=== PATIENT | female | born 2000 | race Caucasian/White ===

== ENCOUNTER 2023-02-24 10:25 | Outpatient (OUT) | payer OTHER, SELFPAY ==
--- NOTE | 2023-02-24 10:24 | US_ITS ---
The [address] [address] Patient Name: JUAN CARLOS TURENR MRN: [id number] date: 2000 Sex: F Assigned Patient Location: US Current Patient Location: US Accession/Order Number: [id number] Exam Date: 02/24/2023 10:25 Report Date: 02/24/2023 19:07 At the request of: EVERARDO OLIVEIRA Procedure: US OB transvaginal EXAMINATION: US OB transvaginal HISTORY: MISSED PERIOD COMPARISON: No relevant comparison available. FINDINGS: GESTATIONAL SAC: Present and normal appearing x2. YOLK SAC: Present and normal appearing x2. POLE: Present and normal appearing x2. CARDIAC: Present x2. UTERUS: Normal size and appearance. OVARIES: Right: Corpus lutein cyst. Left: Normal. CERVIX: 4.0 cm in length and closed. CUL-DE-SAC: Normal. OTHER: None. AGE BY LMP: 9 weeks 5 days PETTY BY LMP: 09/24/2023 AGE BY US CRL: Baby A: 9 weeks 5 days Baby B: 10 weeks 2 days PETTY BY US CRL: Baby A: 09/24/2023 Baby B: 09/20/2023 US/US OB transvaginal IMPRESSION: Live twin intrauterine . Electronically authenticated by: MARIANA MISTRY Date: 02/24/2023 19:07
== END 2023-02-24 10:26 | disposition home or self-care (01) ==
LOC: US 10:25
PROVIDERS: Visit Provider Obstetrics & Gynecology
DX: O30.001 Twin pregnancy, unspecified number of placenta and unspecified number of amniotic sacs, first trimester (principal); Z3A.09 9 weeks gestation of pregnancy; N92.6 Irregular menstruation, unspecified
CPT/HCPCS: 76817

== ENCOUNTER 2023-03-03 11:58 | Outpatient (OUT) | payer OTHER, SELFPAY ==
[2023-03-03 12:38] LABS: BOX Test Sent Out Y
== END 2023-03-03 11:59 | disposition home or self-care (01) ==
LOC: LAB 12:02
PROVIDERS: Visit Provider Obstetrics & Gynecology
DX: Z34.81 Encounter for supervision of other normal pregnancy, first trimester (principal); Z31.430 Encounter of female for testing for genetic disease carrier status for procreative management
CPT/HCPCS: 36415

== ENCOUNTER 2023-03-10 12:57 | Outpatient (OUT) | payer OTHER, SELFPAY ==
[2023-03-10 13:29] LABS: Basophils Percent Auto 0.2 % (0.2-2.0); Eosinophils Absolute Auto 0.1 10^3/uL (0.0-0.7); Hematocrit 37.9 % (36.0-48.0); Immature Granulocytes Abs Auto 0.03 10^3/uL (0.00-0.03); Immature Granulocytes Pct Auto 0.3 % (0.0-0.5); Lymphocytes Absolute Auto 1.6 10^3/uL (1.2-3.8); Lymphocytes Percent Auto 15.6 % (20.5-60.0); Mean Corpuscular HGB Conc 34.3 g/dL (29.9-35.2); Mean Corpuscular Hemoglobin 30.7 pg (26.7-34.0); Mean Corpuscular Volume 89.4 fL (81.0-99.0); Mean Platelet Volume 10.4 fL (9.5-13.5); Monocytes Absolute Auto 0.5 10^3/uL (0.3-0.8); Monocytes Percent Auto 4.9 % (1.7-12.0); Neutrophils Absolute Auto 7.9 10^3/uL (1.4-6.5); Platelet Count 281 10^3/uL (150-450); Red Blood Count 4.24 10^6/uL (4.20-5.40); White Blood Count 10.1 10^3/uL (4.0-11.0)
[2023-03-10 13:41] LABS: Estimated Average Glucose 94 mg/dL; Glycohemoglobin A1C 4.9 % (4.5-6.2)
[2023-03-10 14:15] LABS: Thyroid Stimulating Hormone 1.263 uIU/mL (0.358-3.740)
[2023-03-11 06:12] LABS: Rubella Antibodies, IgG <0.90 index (Immune >0.99)
[2023-03-11 07:12] LABS: HBsAg Screen Negative (Negative); HCV Ab Non Reactive (Non Reactive); HIV Ab/p24 Ag Screen Non Reactive (Non Reactive)
[2023-03-11 10:13] LABS: Rapid Plasma Reagin, Quant Non Reactive (NonRea<1:1)
== END 2023-03-10 12:58 | disposition home or self-care (01) ==
LOC: LAB 13:00
PROVIDERS: Visit Provider Obstetrics & Gynecology
DX: N91.2 Amenorrhea, unspecified (principal)
CPT/HCPCS: 36415; 83036; 84443; 85025; 86592; 86706; 86762; 86803; 86850; 86900; 86901; 87086; 87389

== ENCOUNTER 2023-03-29 20:23 | Outpatient (REF) | payer OTHER, SELFPAY ==
[2023-04-04 13:08] LABS: Age Gdln ACOG Testing Note (.); IGP, rfx Aptima HPV ASCU Note (.)
== END 2023-03-29 20:24 | disposition home or self-care (01) ==
LOC: LAB 20:23
PROVIDERS: Visit Provider Obstetrics & Gynecology
DX: Z01.419 Encounter for gynecological examination (general) (routine) without abnormal findings (principal)
CPT/HCPCS: G0145

== ENCOUNTER 2023-04-07 13:30 | Outpatient (OUT) | payer OTHER, SELFPAY ==
[2023-04-09 00:08] LABS: AFP Value 49.4 ng/mL (.); Gest. Age on Collection Date 15.7 weeks (.); Insulin Dep Diabetes No (.); Maternal Age At EDD 24.2 yr (.); OSBR Risk 1 IN 8068 (.); Results Report (.)
== END 2023-04-07 13:31 | disposition home or self-care (01) ==
LOC: LAB 13:31
PROVIDERS: Visit Provider Obstetrics & Gynecology
DX: Z34.92 Encounter for supervision of normal pregnancy, unspecified, second trimester (principal)
CPT/HCPCS: 36415; 82105

== ENCOUNTER 2023-08-19 08:05 | Outpatient (RCR) | payer OTHER, SELFPAY ==
[2023-08-19] MEDS: BETAMETHASONE ACE/BETAMETHASONE SOD PHOS 30 MG/5 ML 12 MG IM (15:08)
== END 2023-08-19 15:30 | disposition home or self-care (01) ==
LOC: INF 08:05
PROVIDERS: Visit Provider Obstetrics & Gynecology
DX: O36.8990 Maternal care for other specified fetal problems, unspecified trimester, not applicable or unspecified (principal); Z3A.00 Weeks of gestation of pregnancy not specified
CPT/HCPCS: 96372; J0702

== ENCOUNTER 2023-08-20 14:55 | Outpatient (OUT) | payer OTHER, SELFPAY ==
--- OUTSIDE RECORDS SUMMARY | 2023-08-20 15:06 | XMS_ITS | CCD ---
Author Name Unknown Address [address] [place] [address] Organization [facility] Care Team Providers Care Internal Specialist Name Role Phone HOUSE, SUREKHA Unavailable Unavailable HOUSE, SUREKHA Unavailable Unavailable HOUSE, SUREKHA Unavailable Unavailable HOUSE, SUREKHA Unavailable Unavailable SHINE AUGUSTIN Unavailable Unavailable HOUSE, SUREKHA Unavailable Unavailable HOUSE, SUREKHA Unavailable Unavailable Isiah LAI, [facility] Primary Care Provider Isiah LAI, [facility] Primary Care Provider ZARINA MAYA Referring Unavailable [facility] Primary Care Unavailable [facility] Primary Care Unavailable ANAIS MONTIEL Attending Unavailable IAIN SHAH Attending Unavailable [facility] Primary Care Unavailable MORA SKINNER Referring Unavailable [facility] Primary Care Unavailable MARQUEZ DANIELLE Attending Unavailable EVERARDO OLIVEIRA Attending Unavailable MARQUEZ DANIELLE Attending Unavailable Medications Current Medications Medication Drug Class(es) Dates Sig (Normalized) Sig (Original) acetaZOLAMIDE 250 mg oral tablet (2 sources) Carbonic Anhydrase Inhibitor take 1 tablet by mouth twice daily acetaZOLAMIDE (DIAMOX) 250 MG tablet Take 250 mg by mouth 2 times daily 0 Active fluticasone propionate 0.05 mg/actuat metered dose nasal spray (4 sources) Corticosteroid Start: 10-11-2021 take 2 spray(s) nasal route once daily fluticasone (FLONASE) 50 MCG/ACT nasal spray 2 sprays by Each Nostril route daily 48 g 1 10/11/2021 Active Completed/Discontinued Medications Medication Drug Class(es) Dates Sig (Normalized) Sig (Original) dexamethasone phosphate 10 mg/ml injectable solution (1 source) Corticosteroid Start: 11-04-2021 End: 11-04-2021 dexamethasone (DECADRON) injection 10 mg Start: 11-04-2021 End: 11-04-2021 dexamethasone (DECADRON) inj ection 10 mg iopamidol (ISOVUE-370) 76 % injection 75 mL (1 source) Start: 11-08-2021 End: 11-08-2021 iopamidol (ISOVUE-370) 76 % injection 75 mL 1 ml ketorolac tromethamine 30 mg/ml cartridge (1 source) Nonsteroidal Anti-inflammatory Drug, Cyclooxygenase Inhibitor Start: 11-04-2021 End: 11-04-2021 ketorolac (TORADOL) injection 30 mg Start: 11-04-2021 End: 11-04-2021 ketorolac (TORADOL) injectio n 30 mg Problems Active Problems Problem Classification Problem Date Documented Da te Episodic/Chronic Fluid and electrolyte disorders (1 source) Dehydration; Translations: [Dehydration] Episodic Genitourinary symptoms and ill-defined conditions (1 source) Dysuria; Translations: [Painful micturition, unspecified] Episodic Headache, including migraine (2 sources) Headache; Translations: [Headache] Onset: 10-20-2017 Episodic Other acquired deformities (1 source) Scoliosis, unspecified; Translations: [SCOLIOSIS UNSPECIFIED] Onset: 10-20-2017 Chronic Other ear and sense organ disorders (1 source) Otalgia, right ear; Translations: [Otalgia, unspecified] Episodic Other ear and sense organ disorders (1 source) Tinnitus of vascular origin; Translations: [Pulsatile tinnitus, right ear] Episodic Past or Other Problems Problem Classification Problem Date Documented Da te Episodic/Chronic Malaise and fatigue (1 source) Other fatigue; Translations: [OTHER FATIGUE] Onset: 10-20-2017 Episodic Other lower respiratory disease (5 sources) Shortness of breath; Translations: [Dyspnea, unspecified] Onset: 10-18-2017 Episodic Results Test Name Value Interpretation Reference Range Facility Basic Metabolic Panelon 04-14 Anion gap [Moles/Vol] 12 mmol/L 9 - 17 mmol/L [facility] Calcium [Mass/Vol] 9.3 mg/dL 8.6 - 10. 4 mg/dL [facility] Chloride [Moles/Vol] 109 mmol/L High 98 - 10 7 mmol/L [facility] CO2 [Moles/Vol] 16 mmol/L Low 20 - 31 mmol/L [facility] Creatinine [Mass/Vol] 0.76 mg/dL 0.5 - 0.9 mg/dL [facility] GFR >60 60 - PI NF mL/min [facility] GFR Non- >60 60 - PINF mL/min [facility] GFR/1.73 sq M.predicted MDRD (S/P/Bld) [Vol rate/Area] [facility] Comment on above: Average GFR for 20-2 9 years old: 116 mL/min/1.73sq m Chronic Kidney Disease: <60 mL/min/1.73sq m Kidney failure: <15 mL/min/1.73sq m eGFR calculated using average adult body mass. Additional eGFR calculator available at: http://www.Vocal[employer]/giftee_crcl_2011.htm Glucose [Mass/Vol] 94 mg/dL 70 - 99 mg/dL [facility] Interpretation and review of laboratory results Abnormal [facility] Potassium [Moles/Vol] 4.0 mmol/L 3.7 - 5.3 mmol/L [facility] Sodium [Moles/Vol] 137 mmol/L 135 - 144 mmol/L [facility] Urea nitrogen (BldV) [Mass/Vol] 9 mg/dL 6 - 20 mg/dL [facility] Urea nitrogen/Creatinine (Bld) [Mass ratio] 12 9 - 20 [facility] Basic Metabolic Profon 04-23 (cont.) Normal [facility] Comment on above: Result Comment: Aver age GFR for 20-29 years old: 116 mL/min/1.73sq m Chronic Kidney Disease: <60 mL/min/1.73sq m Kidney failure: <15 mL/min/1.73sq m eGFR calculated using average adult body mass. Additional eGFR calculator available at: http://www.Vocalocity/giftee_crcl_2012.htm Performed By: #### B MP, MG #### [facility] [address] [place] [address] Geospatial Specialist: Ap Gutierrez MD Anion gap [Moles/Vol] 12 mmol/L Normal 9-17 [facility] Comment on above: Performed By: #### B MP, MG #### [facility] [address] [place] [address] Geospatial Specialist: Ap Gutierrez MD BUN/CRE Ratio 12 Normal 9-20 [facility] Comment on above: Performed By: #### B MP, MG #### [facility] [address] [place] [address] Geospatial Specialist: Ap Gutierrez MD Calcium [Mass/Vol] 9.3 mg/dL Normal 8.6-10.4 [facility] Comment on above: Performed By: #### B MP, MG #### [facility] [address] [place] [address] Geospatial Specialist: Ap Gutierrez MD Chloride [Moles/Vol] 109 mmol/L High 98-107 [facility] Comment on above: Performed By: #### B MP, MG #### [facility] [address] [place] [address], [place] [address] Geospatial Specialist: Ap Gutierrez MD CO2 [Moles/Vol] 16 mmol/L Low 20-31 [facility] Comment on above: Performed By: #### B MP, MG #### [facility] [address] [place] [address], [place] [address] Geospatial Specialist: Ap Gutierrez MD Creatinine [Mass/Vol] 0.76 mg/dL Normal 0.50-0.90 [facility] Comment on above: Performed By: #### B MP, MG #### [facility] [address] [place] [address] Geospatial Specialist: Ap Gutierrez MD GFR, Amer >60 Normal >60 [facility] Comment on above: Performed By: #### B MP, MG #### [facility] [address] [place] [address], [place] [address] Geospatial Specialist: Ap Gutierrez MD GFR,non Amer >60 Normal >60 [facility] Comment on above: Performed By: #### B MP, MG #### [facility] [address] [place] [address], [place] [address] Geospatial Specialist: Ap Gutierrez MD Glucose [Mass/Vol] 94 mg/dL Normal 70-99 [facility] Comment on above: Performed By: #### B MP, MG #### [facility] [address] [place] [address], [place] [address] Geospatial Specialist: Ap Gutierrez MD Potassium [Moles/Vol] 4.0 mmol/L Normal 3.7-5.3 [facility] Comment on above: Performed By: #### B MP, MG #### [facility] [address] [place] [address], [place] [address] Geospatial Specialist: Ap Gutierrez MD Sodium [Moles/Vol] 137 mmol/L Normal 135-144 [facility] Comment on above: Performed By: #### B MP, MG #### [facility] [address] [place] [address], [place] [address] Geospatial Specialist: Ap Gutierrez MD Urea nitrogen [Mass/Vol] 9 mg/dL Normal 6-20 [facility] Comment on above: Performed By: #### B MP, MG #### [facility] [address] [place] [address] Geospatial Specialist: Ap Gutierrez MD Magnesiumon 04-23-2022 Magnesium [Mass/Vol] 2.2 mg/dL Normal 1.6-2.6 [facility] Comment on above: Performed By: #### B MP, MG #### [facility] [address] [place] [id number] Geospatial Specialist: Ap Gutierrez MD Magnesium [Mass/Vol] 2.2 mg/dL 1.6 - 2 .6 mg/dL [facility] No Panel Informationon 04-23 [facility] Microscopic Urinalysison Bacteria, UA 4+ Abnormal None [facility] Epithelial Cells UA 0 TO 4 [facility] Interpretation and review of laboratory results Abnormal [facility] Mucus, UA 2+ Abnormal None [facility] RBC, UA 0 TO 4 [facility] WBC, UA 0 TO 4 [facility] UA w/Reflex Cultureon 2021 Bilirubin, SemiQt,Ur Negative Normal [facility] Comment on above: Performed By: #### U AX, UMICAO #### [facility] [address] [place] [address] Geospatial Specialist: Ap Gutierrez MD Blood, Urine Negative Normal [facility] Comment on above: Performed By: #### U AX, UMICAO #### [facility] [address] [place] [address] Geospatial Specialist: Ap Gutierrez MD Glucose Ql (U) Negative Normal [facility] Comment on above: Performed By: #### U AX, UMICAO #### [facility] [address] [place] [address] Geospatial Specialist: Ap Gutierrez MD Ketones Ql (U) 2+ Abnormal [facility] Comment on above: Performed By: #### U AX, UMICAO #### [facility] [address] [place] [address] Geospatial Specialist: Ap Gutierrez MD Leukocyte esterase Test strip Ql (U) Negative Normal [facility] Comment on above: Performed By: #### U AX, UMICAO #### [facility] [address] [place] [address] Geospatial Specialist: Ap Gutierrez MD Nitrite,Ur Negative Normal NEG [facility] Comment on above: Performed By: #### U AX UMICAO #### [facility] [address] [place] [address] Geospatial Specialist: Ap Gutierrez MD PH,Ur 6.0 Normal 5.0-6.0 [facility] Comment on above: Performed By: #### U AXREGLAICAO #### [facility] [address] [place] [address] Geospatial Specialist: Ap Gutierrez MD Protein Ql (U) Negative Normal NEG [facility] Comment on above: Performed By: #### U AX UMICAO #### [facility] [address] [place] [address] Geospatial Specialist: Ap Gutierrez MD Spec. [place],Ur 1.025 Normal 1.010-1.025 [facility] Comment on above: Performed By: #### U AXTERIO #### [facility] [address] [place] [address] Geospatial Specialist: Ap Gutierrez MD Urobilinogen,Ur Normal Normal NORM [facility] Comment on above: Performed By: #### U AXTERIO #### [facility] [address] [place] [address] Geospatial Specialist: Ap Gutierrez MD Urinalysis with Reflex to Cu ltureon 03-24-2022 Bilirubin Urine Negative NEGATIVE [facility] Glucose, Ur Negative NEGATIVE [facility] Interpretation and review of laboratory results Abnormal [facility] Ketones Ql (U) 2+ Abnormal NEGATIVE [facility] Leukocyte esterase Test strip Ql (U) Negative NEGATIVE [facility] Nitrite, Urine Negative NEGATIVE [facility] pH, UA 6.0 5 - 6 [facility] Protein, UA Negative NEGATIVE [facility] Specific [place], UA 1.025 1.01 - 1.025 [facility] Urine Hgb Negative NEGATIVE [facility] Urobilinogen, Urine Normal Normal [facility] Urinalysis,Microon 2 Bacteria 4+ Abnormal NONE [facility] Comment on above: Performed By: #### U AXISIDRA #### [facility] [address] [place] [address] Geospatial Specialist: Ap Gutierrez MD Epithelial cells LM Ql (Urine sed) 0 TO 4 Normal 0-5 [facility] Comment on above: Performed By: #### U AXTERIO #### [facility] [address] [place] [address] Geospatial Specialist: Ap Gutierrez MD Mucus Strands 2+ Abnormal [facility] Comment on above: Performed By: #### U AXTERIO #### [facility] [address] [place] [address] Geospatial Specialist: Ap Gutierrez MD Urine RBC's 0 TO 4 Normal 0-4 [facility] Comment on above: Performed By: #### U AXREGLAICAO #### [facility] [address] [place] [address] Geospatial Specialist: Ap Gutierrez MD Urine WBC's 0 TO 4 Normal 0-4 [facility] Comment on above: Performed By: #### U AXTERIO #### [facility] [address] [place] [address] Geospatial Specialist: Ap Gutierrez MD CT IAC POSTERIOR FOSSA W CON TRASTon 11-08-2021 CT IAC POSTERIOR FOSSA W CONTRAST EXAMINATION: CT OF THE INTERNAL AUDITORY CANAL WITH CONTRAST 11/08/2021 1:57 pm: TECHNIQUE: CT of the internal auditory canal was performed with the administration of intravenous contrast. Multiplanar reformatted images are provided for review. Dose modulation, iterative reconstruction, and/or weight based adjustment of the mA/kV was utilized to reduce the radiation dose to as low as reasonably achievable. COMPARISON: CT brain performed 11/04/2021. HISTORY: ORDERING SYSTEM PROVIDED HISTORY: Pulsatile tinnitus, right ear TECHNOLOGIST PROVIDED HISTORY: STAT Creatinine as needed:->Yes Reason for Exam: c/o pulsating sensation in right ear FINDINGS: RIGHT TEMPORAL BONE: The external auditory canal is clear without evidence of bony erosion. The scutum is intact. The middle ear cavity is clear. The ossicular chain is intact. The mastoid air cells are clear. The inner ear structures appear unremarkable. Normal mineralization of the otic capsule. The internal auditory canal and vestibular aqueduct appear unremarkable. The carotid canal is normal in appearance. The jugular bulb is unremarkable. LEFT TEMPORAL BONE: The external auditory canal is clear without evidence of bony erosion. The scutum is intact. The middle ear cavity is clear. The ossicular chain is intact. The mastoid air cells are clear. The inner ear structures appear unremarkable. Normal mineralization of the otic capsule. The internal auditory canal and vestibular aqueduct appear unremarkable. The carotid canal is normal in appearance. The jugular bulb is unremarkable. BRAIN: The visualized portion of the intracranial contents appear unremarkable. ORBITS: The visualized portion of the orbits demonstrate no acute abnormality. SINUSES: The visualized paranasal sinuses are clear. IMPRESSION: Unremarkable appearance of the temporal bones. Interpreted by: Lico Orosco MD Signed by: Lico Orosco MD 11/08/21 Final result Normal [facility] Unremarkable appearance of the temporal bones. [facility] RIS CONSOLIDATED EXAMINATION: CT OF THE INTERNAL AUDITORY CANAL WITH CONTRAST 11/08/2021 1:57 pm: TECHNIQUE: CT of the internal auditory canal was performed with the administration of intravenous contrast. Multiplanar reformatted images are provided for review. Dose modulation, iterative reconstruction, and/or weight based adjustment of the mA/kV was utilized to reduce the radiation dose to as low as reasonably achievable. COMPARISON: CT brain performed 11/04/2021. HISTORY: ORDERING SYSTEM PROVIDED HISTORY: Pulsatile tinnitus, right ear TECHNOLOGIST PROVIDED HISTORY: STAT Creatinine as needed:->Yes Reason for Exam: c/o pulsating sensation in right ear FINDINGS: RIGHT TEMPORAL BONE: The external auditory canal is clear without evidence of bony erosion. The scutum is intact. The middle ear cavity is clear. The ossicular chain is intact. The mastoid air cells are clear. The inner ear structures appear unremarkable. Normal mineralization of the otic capsule. The internal auditory canal and vestibular aqueduct appear unremarkable. The carotid canal is normal in appearance. The jugular bulb is unremarkable. LEFT TEMPORAL BONE: The external auditory canal is clear without evidence of bony erosion. The scutum is intact. The middle ear cavity is clear. The ossicular chain is intact. The mastoid air cells are clear. The inner ear structures appear unremarkable. Normal mineralization of the otic capsule. The internal auditory canal and vestibular aqueduct appear unremarkable. The carotid canal is normal in appearance. The jugular bulb is unremarkable. BRAIN: The visualized portion of the intracranial contents appear unremarkable. ORBITS: The visualized portion of the orbits demonstrate no acute abnormality. SINUSES: The visualized paranasal sinuses are clear. [facility] RIS CONSOLIDATED Lico Orosco MD - 11/08/2021 EXAMINATION: CT OF THE INTERNAL AUDITORY CANAL WITH CONTRAST 11/08/2021 1:57 pm: TECHNIQUE: CT of the internal auditory canal was performed with the administration of intravenous contrast. Multiplanar reformatted images are provided for review. Dose modulation, iterative reconstruction, and/or weight based adjustment of the mA/kV was utilized to reduce the radiation dose to as low as reasonably achievable. COMPARISON: CT brain performed 11/04/2021. HISTORY: ORDERING SYSTEM PROVIDED HISTORY: Pulsatile tinnitus, right ear TECHNOLOGIST PROVIDED HISTORY: STAT Creatinine as needed:->Yes Reason for Exam: c/o pulsating sensation in right ear FINDINGS: RIGHT TEMPORAL BONE: The external auditory canal is clear without evidence of bony erosion. The scutum is intact. The middle ear cavity is clear. The ossicular chain is intact. The mastoid air cells are clear. The inner ear structures appear unremarkable. Normal mineralization of the otic capsule. The internal auditory canal and vestibular aqueduct appear unremarkable. The carotid canal is normal in appearance. The jugular bulb is unremarkable. LEFT TEMPORAL BONE: The external auditory canal is clear without evidence of bony erosion. The scutum is intact. The middle ear cavity is clear. The ossicular chain is intact. The mastoid air cells are clear. The inner ear structures appear unremarkable. Normal mineralization of the otic capsule. The internal auditory canal and vestibular aqueduct appear unremarkable. The carotid canal is normal in appearance. The jugular bulb is unremarkable. BRAIN: The visualized portion of the intracranial contents appear unremarkable. ORBITS: The visualized portion of the orbits demonstrate no acute abnormality. SINUSES: The visualized paranasal sinuses are clear. IMPRESSION: Unremarkable appearance of the temporal bones. [employer] Phone: Radiology Study observation (narrative) [employer] Phone: CT IAC POSTERIOR FOSSA W CON TRASTOrdered By: Lico Orosco on 11-08-2021 [employer] Phone: CT HEAD WO CONTRASTon 2021 CT HEAD WO CONTRAST EXAMINATION: CT OF THE HEAD WITHOUT CONTRAST 11/04/2021 11:53 am TECHNIQUE: CT of the head was performed without the administration of intravenous contrast. Dose modulation, iterative reconstruction, and/or weight based adjustment of the mA/kV was utilized to reduce the radiation dose to as low as reasonably achievable. COMPARISON: None. HISTORY: ORDERING SYSTEM PROVIDED HISTORY: headache TECHNOLOGIST PROVIDED HISTORY: headache Decision Support Exception - unselect if not a suspected or confirmed emergency medical condition->Emergenc y Medical Condition (MA) Is the patient ?->No Reason for Exam: C/o pressure in right ear with visual changes FINDINGS: BRAIN/VENTRICLES: There is no acute intracranial hemorrhage, mass effect or midline shift. No abnormal extra-axial fluid collection. The romero-white differentiation is maintained without evidence of an acute infarct. There is no evidence of hydrocephalus. ORBITS: The visualized portion of the orbits demonstrate no acute abnormality. SINUSES: The visualized paranasal sinuses and mastoid air cells demonstrate no acute abnormality. SOFT TISSUES/SKULL: No acute abnormality of the visualized skull or soft tissues. IMPRESSION: No acute intracranial abnormality. Interpreted by: Raj Araiza MD Signed by: Raj Araiza MD 11/04/21 Final result Normal [facility] HCG, ,Urineon 11-04 Beta HCG ( test) Ql (U) Negative Normal NEG [facility] Comment on above: Result Comment: Spec imens with hCG levels near the threshold of the test (25 mIU/mL) may give a negative or indeterminate result. In such cases, another test should be performed with a new specimen in 48-72 hours. If early is suspected clinically in this setting, correlation with quantitative serum b-hCG level is suggested. Performed By: #### U HCG #### [facility] [address] [place] [address] Geospatial Specialist: Ap Gutierrez MD , Urineon 2 Beta HCG ( test) Ql (U) Negative NEGATIVE [facility] Comment on above: Specimens with hCG l evels near the threshold of the test (25 mIU/mL) may give a negative or indeterminate result. In such cases, another test should be performed with a new specimen in 48-72 hours. If early is suspected clinically in this setting, correlation with quantitative serum b-hCG level is suggested. [facility] CBC AUTO DIFFon 10-18-2017 Basophils Auto #/vol (Bld) 0.0 103/ul Normal 0.0-0.1 [facility] Comment on above: Performed By: #### C BC ####[facility] [address] [place], [place] [address]Nlsugz Varsha Basophils/100 WBC Auto (Bld) 0.4 % Normal 0.2-2.0 [facility] Comment on above: Performed By: #### C BC ####[facility] [address] [place] [address]Chmegq Varsha Eosinophils 0.1 103/ul Normal 0.0-0.7 [facility] Comment on above: Performed By: #### C BC ####[facility] [address] [place], [place] [id number] Varsha Eosinophils/100 leukocytes 1.7 % Normal 0.9-7.0 [facility] Comment on above: Performed By: #### C BC ####[facility] [address] [place] [address]Xrbyzf Varsha Erythrocyte distribution width Auto Ratio (RBC) 12.2 % Normal 11.0-15.0 [facility] Comment on above: Performed By: #### C BC ####[facility] [address] [place] [address]Jahxcy Varsha Erythrocytes (RBC) 4.20 106/ul Normal 4.20-5.40 [facility] Comment on above: Performed By: #### C BC ####[facility] [address] Varsha Hematocrit (HCT) 38.7 % Normal 36.0-48.0 [facility] Comment on above: Performed By: #### C BC ####[facility] [address] Varsha Hemoglobin mass conc (Bld) 12.8 g/dL Normal 12.0-16.0 [facility] Comment on above: Performed By: #### C BC ####[facility] [address] [place] [address] Varsha IG # 0.01 10e3/ul Normal 0.00-0.03 [facility] Comment on above: Performed By: #### C BC ####[facility] [address] [place] [address] Varsha IG % 0.1 % Normal 0.0-0.5 [facility] Comment on above: Performed By: #### C BC ####[facility] [address] [place] [address] Varsha Lymphocytes 2.2 103/ul Normal 1.2-3.8 [facility] Comment on above: Performed By: #### C BC ####[facility] [address] [place] [address] Varsha Lymphocytes/100 leukocytes 27.6 % Normal 20.5-60.0 [facility] Comment on above: Performed By: #### C BC ####[facility] [address] [place] MANUAL DIFF REQ NO Normal [facility] Comment on above: Performed By: #### C BC ####[facility] [id number] [place] [address] Varsha MCH 30.5 pg Normal 26.7-34.0 [facility] Comment on above: Performed By: #### C BC ####[facility] F[address] [place], [place] [address]maida Maddox MCHC mass conc (RBC) 33.1 g/dL Normal 29.9-35.2 [facility] Comment on above: Performed By: #### C BC ####[facility] [address] [place] [id number] Maddox MCV 92.1 fL Normal 81.0-99.0 [facility] Comment on above: Performed By: #### C BC ####[facility] L[address] [place] [id number] Varsha Monocytes 0.6 103/ul Normal 0.3-0.8 [facility] Comment on above: Performed By: #### C BC ####[facility] [address] [place], [place] [id number] Varsha Monocytes/100 leukocytes 7.3 % Normal 1.7-12.0 [facility] Comment on above: Performed By: #### C BC ####[facility] [address] [place], [place] [id number] Varsha Neutrophils 4.9 103/ul Normal 1.4-6.5 [facility] Comment on above: Performed By: #### C BC ####[facility] [address] [place], [place] [id number] Varsha Neutrophils/100 WBC Auto (Bld) 62.9 % Normal 43.0-75.0 [facility] Comment on above: Performed By: #### C BC ####[facility] [address] [place], [place] [id number] Maddox Platelet mean volume (PMV) 10.0 fL Normal 9.5-13.5 [facility] Comment on above: Performed By: #### C BC ####[facility] [address] [place], [place] [address]Gerken Varsha Platelets 273 103/ul Normal 150-450 [facility] Comment on above: Performed By: #### C BC ####[facility] [address] [place] [id number] Varsha WBC (Leukocytes) 7.8 103/ul Normal 4.0-11.0 [facility] Comment on above: Performed By: #### C BC ####[facility] Gntrnhjduq9818 [place] [id number] Varsha PROF 14(COMP METB)on 018 Alanine aminotransferase (ALT) 31 U/L Normal 9-52 [facility] Comment on above: Performed By: #### C MP ####[facility] [address] [place] [address] Varsha Albumin 4.2 g/dL Normal 3.5-5.0 [facility] Comment on above: Performed By: #### C MP ####[facility] [address] [place] [address] Varsha Albumin/Globulin Ratio 1.4 {ratio} Normal [facility] Comment on above: Performed By: #### C MP ####[facility] [address] [place] [address] Varsha Alkaline phosphatase (ALP) 69 U/L Normal 38-126 [facility] Comment on above: Performed By: #### C MP ####[facility] [address] [place] [address] Varsha Anion gap 12.7 mmol/L Normal The [facility] Comment on above: Performed By: #### C MP ####[facility] [address] [place] [address] Varsha Aspartate aminotransferase (AST) 28 U/L Normal 14-36 [facility] Comment on above: Performed By: #### C MP ####[facility] [address] [place] [address] Varsha Bilirubin Ql (U) 0.4 mg/dL Normal 0.2-1.3 [facility] Comment on above: Performed By: #### C MP ####[facility] [address] [place] [address] Varsha BUN/Creatinine Ratio 22.4 mg/mg Normal The [facility] Comment on above: Performed By: #### C MP ####[facility] [address] [place] [address] Varsha Calcium 9.3 mg/dL Normal 8.4-10.2 [facility] Comment on above: Performed By: #### C MP ####[facility] [address] [place], [place] [address]Xzwbvj Varsha Chloride 100 mmol/L Normal 98-107 [facility] Comment on above: Performed By: #### C MP ####[facility] [address]ur[address] [place] [id number] Varsha CO2 27.0 mmol/L Normal 22.0-30.0 [facility] Comment on above: Performed By: #### C MP ####[facility] X[address] Varsha Creatinine 0.64 mg/dL Normal 0.52-1.04 [facility] Comment on above: Performed By: #### C MP ####[facility] [address] [place], [place] [id number] Varsha eGFR (non-black) mL/min/{1.73_m2} Normal >=60 Th [facility] Comment on above: Performed By: #### C MP ####[facility] [address] [place], [place] [id number] Varsha Globulin 2.9 g/dL Normal [facility] Comment on above: Performed By: #### C MP ####[facility] [address] [place] [id number] Varsha Glucose mass conc 88 mg/dL Normal 74-106 [facility] Comment on above: Performed By: #### C MP ####[facility] [address]tv[address]so[address]wf[address] [place] [id number] Varsha Potassium molar conc 3.8 mmol/L Normal 3.4-5.0 [facility] Comment on above: Performed By: #### C MP ####[facility] [address] [place] [address]Gerken Varsha Protein 7.2 g/dL Normal 6.1-8.2 [facility] Comment on above: Performed By: #### C MP ####[facility] [address] [place], [place] [address]Fevdbo Varsha Sodium 136 mmol/L Critically low 137-145 The [facility] Comment on above: Performed By: #### C MP ####[facility] [address] [place], [place] [address]Ycacmg Varsha Urea nitrogen 14.0 mg/dL Normal 6.4-19.3 The [facility] Comment on above: Performed By: #### C MP ####[facility] [address] [place], [place] [address]Rjcxro Varsha XR SCOLIOSIS SERIES 2-3 Von 10-18-2017 XR SCOLIOSIS SERIES 2-3 [address] [place] [address] Patient: JUAN CARLOS TURNER Exam Date: 10/18/2017DOB: 2000 Gender:F : DR SUREKHA NICHOLSON Admission #: [id number] : Order #: [id number] HERE TO VIEW EXAM RADIOLOGY REPORT PROCEDURE: RADIOGRAPH SCOLIOSIS SERIES 2-3 VIEWS COMPARISON: None. INDICATIONS: Chronic lumbar pain and cervical pain. scoliosis deformity of spine FINDINGS: VERTEBRA: No fracture, listhesis, or abnormal wedging.DISK SPACES: No significant narrowing. CURVATURE: 6? convex right MEASURED FROM: Superior endplate T4 to superior endplate T12 CURVATURE: 7? convex leftMEASURED FROM: Superior endplate T12 to superior endplate L4 RISSER GRADE: Grade 5OTHER: Negative CONCLUSION: 1. Mild S-shaped curvature of the thoracic and lumbar spine below the criteria for scoliosis. Dictated by: Shine Augustin M.D. on 10/18/2017 at 17:12 Approved by: Shine Augustin M.D. on 10/18/2017 at 17:16 [facility] Vital Signs Date Time Vital Sign Value Performing Clinician Faci lity 04-23-2022 14:51-0400 Body temperature 99.1 [degF] Anais Montiel MD Work Phone: [employer] 04-23-2022 14:45-0400 SaO2% (BldA) [Mass fraction] 99 % Anais Montiel MD Work Phone: [facility] [employer] 04-23-2022 14:30-0400 Diastolic blood pressure 72 mm[Hg] Anais Montiel MD Work Phone: [employer] 04-23-2022 14:30-0400 Heart rate 57 /min Anais Montiel MD Work Phone: [facility] [employer] 04-23-2022 14:30-0400 Respiratory rate 16 /min Anais Montiel MD Work Phone: [employer] 04-23-2022 14:30-0400 Systolic blood pressure 109 mm[Hg] Anais Montiel MD Work Phone: [employer] 04-23-2022 13:58-0400 Body height 167.6 cm Anais Montiel MD Work Phone: [facility] [employer] 04-23-2022 13:58-0400 Body mass index (BMI) [Ratio] 24.95 kg/m2 Anais Montiel MD Work Phone: [facility] [employer] 04-23-2022 13:58-0400 Body weight 70.13 kg Anais Montiel MD Work Phone: [facility] 11-04-2021 11:01-0400 Body height 170.2 cm [facility] 11-04-2021 11:01-0400 Body mass index (BMI) [Ratio] 28.19 kg/m2 [facility] 11-04-2021 11:01-0400 Body temperature 97.9 [degF] [facility] 11-04-2021 11:01-0400 Body weight 81.65 kg [facility] 11-04-2021 11:01-0400 Diastolic blood pressure 96 mm[Hg] [facility] 11-04-2021 11:01-0400 Heart rate 86 /min [facility] 11-04-2021 11:01-0400 Respiratory rate 18 /min [facility] 11-04-2021 11:01-0400 SaO2% (BldA) [Mass fraction] 99 % [facility] 11-04-2021 11:01-0400 Systolic blood pressure 147 mm[Hg] [facility] Encounters Encounter Date Encounter Type Care Provider Facility Start: 08-10-2023 End: 08-10-2023 ambulatory MARQUEZ DANIELLE Not Available Start: 07-27-2023 End: 07-27-2023 ambulatory MARQUEZ SHASHI Not Available Start: 07-12-2023 End: 07-12-2023 ambulatory EVERARDO OLIVEIRA Not Available Start: 04-23-2022 End: 04-23-2022 [facility] Start: 04-23-2022 End: 04-23-2022 Emergency department patient visit Anais Montiel MD Work Phone: [facility] ED Comment on above: Dehydration (Primary Dx) Start: 03-24-2022 End: 03-25-2022 ambulatory [facility] Start: 03-24-2022 End: 03-24-2022 Subsequent hospital visit by physician Malou Jacinto MD Work Phone: Laboratory Comment on above: Painful urination Start: 11-08-2021 End: 11-11-2021 ambulatory [facility] Start: 11-08-2021 End: 11-10-2021 Subsequent hospital visit by physician [facility] CT Scan Comment on above: Pulsatile tinnitus, right ear Start: 11-04-2021 End: 11-04-2021 Emergency department patient visit Iain Shah DO [facility] ED Comment on above: Chronic nonintractab le headache, unspecified headache type (Primary Dx); Earache on right Start: 10-23-2017 Ambulatory [facility] Facility: Start: 10-18-2017 End: 10-19-2017 Ambulatory [facility] Facility: Procedures Date Procedure Procedure Detail Performing Clinician Start: 04-23-2022 Basic metabolic pane l calcium total Anais Montiel MD Work Phone: Start: 03-24-2022 Urinalysis microscop ic only Mora Skinner [employer] Work Phone: Start: 03-24-2022 Urnls dip stick/tabl et rgnt auto w/o microscopy Mora Skinner [employer] Work Phone: Start: 11-08-2021 Ct orbit sella/post fossa/ear w/contrast matrl Zarina Maya MD Work Phone: Start: 11-04-2021 Ct head/brain w/o co ntrast material Iain Shah DO Start: 11-04-2021 Urine test visual color cmprsn meths Iain Shah DO Plan of Treatment Date Care Activity Detail Author Start: 03-24-2023 Depression Screen Depression Screen [facility] Start: 08-17-2022 DTaP/Tdap/Td vaccine (6 - Td or Tdap) DTaP/Tdap/Td vaccine (6 - Td or Tdap) [facility] Start: 05-03-2022 End: 05-03-2022 Patient encounter procedure 05/03/2022 Office Visit Infectious Diseases Joseph Cotton MD [address] [address] [facility] Infectious Disease Start: 04-14-2022 Influenza vaccination Flu vaccine (#1) [facility] Start: 11-23-2021 End: 11-23-2021 Patient encounter procedure 11/23/2021 Office Visit Otolaryngology Zarina Maya MD [address] [place] [address] [facility] A department of [facility] Start: 11-08-2021 End: 11-08-2021 Patient encounter procedure 11/08/2021 Appointment Radiology [facility] CT Scan Start: 09-28-2021 COVID-19 Vaccine (3 - Booster for Pfizer series) COVID-19 Vaccine (3 - Booster for Pfizer series) [facility] Start: 04-14-2021 Influenza vaccination Flu vaccine (#1) [facility] Start: 2020 Screening for malignant neoplasm of cervix Pap smear [facility] Start: 2017 Hepatitis C screening Hepatitis C screen [facility] Start: 2015 Screening for Chlamydia trachomatis Chlamydia screen [facility] Start: 2014 HIV screening HIV screen [facility] Start: 2011 Depression Screen Depression Screen [facility] Start: 2010 HPV vaccine (1 - 2-dose series) HPV vaccine (1 - 2-dose series) [facility] Start: 1999 Hepatitis C screening Hepatitis C screen [facility] CT HEAD WO CONTRAST CT HEAD WO C ONTRAST Imaging STAT 11/04/2021 11:53 AM EDT [facility] Payers Date Payer Category Payer Unknown [id number] 2000 Unknown [id number] 1999 Unknown [id number] [id number] 1999 Unknown [id number] 1999 Unknown [id number] 1999 Unknown [id number] 1999 Unknown [id number] 1960 Self-pay [id number] 1960 Unknown [id number] Social History Date Type Detail Facility Start: 10-11-2021 End: 03-24-2022 Tobacco smoking status SDIS Never smoked tobacco [employer] Phone: Start: 10-11-2021 End: 03-24-2022 Tobacco use and exposure Smokeless tobacco non-user [employer] Phone: Start: 11-04-2021 End: 04-23-2022 Alcohol intake Lifetime non-drinker (finding) [employer] Phone: Start: 10-11-2021 History SDOH Alcohol Frequency 1 [employer] Phone: Start: 2000 Sex Assigned At Not on file [employer] Phone: Start: 10-25-2021 End: 04-23-2022 Exposure to SARS-CoV-2 (event) Not sure [employer] Phone: Hospital Discharge instructions 04-23-2022 Discharge InstructionsAttachments Note Date & Type Note Facility 04-23-2022 Hospital Discharg e instructions Anais Montiel MD - 04/23/2022 2:34 PM EDT Drink plenty of fluids. May wish to drink less sports drinks. Eat foods high in potassium such as potatoes, bananas, tomatoes, and avocados. Return for weakness, worsening diarrhea, or if worse in any way. Please understand that at this time there is no evidence for a more serious underlying process, but that early in the process of an illness or injury, an emergency department workup can be falsely reassuring. You should contact your family doctor within the next 48 hours for a follow up appointment THANK YOU!!! From [facility] and [facility] On behalf of the Emergency Department staff at [facility], I would like to thank you for giving us the opportunity to address your health care needs and concerns. We hope that during your visit, our service was delivered in a professional and caring manner. Please keep [facility] in mind as we walk with you down the path to your own personal wellness. Please expect an automated text message or email from us so we can ask a few questions about your health and progress. Based on your answers, a clinician may call you back to offer help and instructions. Please understand that early in the process of an illness or injury, an emergency department workup can be falsely reassuring. If you notice any worsening, changing or persistent symptoms please call your family doctor or return to the ER immediately. Tell us how we did during your visit at [email or web address] and let us know about your experience The following attachments cannot be sent through Care Everywhere.Dehydration (Iranian)documented in this encounter [facility] [employer] Work Phone: Hospital Discharge instructions 11-01-2021 InstructionsAttachments Note Date & Type Note Facility 11-01-2021 Hospital Discharg e instructions Iain Shah DO - 11/04/2021 Follow-up with ENT Follow-up on Monday for your CAT scan Motrin or Tylenol for pain Return immediately if any worsening symptoms or any other concerns Tell us how we did visit: [email or web address] and let us know about your experience The following attachments cannot be sent through Care Everywhere.Earache: Adult (Iranian)Headache (Iranian)documented in this encounter [employer] Phone: Evaluation note Note Date & Type Note Facility Evaluation note Diagnosis Chronic nonintractable headache, unspecified headache type- Primary Earache on right Otalgia, unspecified documented in this encounter [employer] Phone: Evaluation note Note Date & Type Note Facility Evaluation note Diagnosis Pulsatile tinnitus, right ear documented in this encounter [employer] Phone: Evaluation note Note Date & Type Note Facility Evaluation note Diagnosis Painful urination Dysuria documented in this encounter [facility] [employer] Phone: Evaluation note Note Date & Type Note Facility Evaluation note Diagnosis Dehydration- Primary documented in this encounter [facility] [employer] Phone: Summary Purpose Family History No Family History Records FoundNo Family History Records FoundNo Family History Records Found Advance Directives No Advanced Directives Records FoundNo Advanced Directives Records FoundNo Advanced Directives Records Found Reason for Referral Specialty Diagnoses / Procedures Referred By Nasreen kraus Referred To Contact Radiology Diagnoses Pulsatile tinnitus, right ear Procedures CT IAC POSTERIOR FOSSA W CONTRAST Zarina Maya MD [address] [place] [id number] Referral ID Status Reason Start Date Expiration Date Visits Re quested Visits Authorized Closed 11/05/2021 12/05/2021 1 1 Additional Source Comments INFORMATION SOURCE (unrecogn ized section and content) DATE CREATED AUTHOR 02/02/2018 [facility] DATE CREATED AUTHOR AUTHOR'S ORGANIZ ATION 04/23/2022 [facility] DATE CREATED AUTHOR AUTHOR'S ORGANIZ ATION 08/12/2023 [facility] EPIC Reason for Visit (unrecogniz ed section and content) Reason Comments Headache Specialty Diagnoses / Procedures Referred By Nasreen kraus Referred To Contact Radiology Diagnoses Pulsatile tinnitus, right ear Procedures CT IAC POSTERIOR FOSSA W CONTRAST Zarina Maya MD [address] [place] [address] Referral ID Status Reason Start Date Expiration Date Visits Re quested Visits Authorized [id number] Closed 11/05/2021 12/05/2021 1 1 Reason Comments Dehydration Feeling dehydrated Scheduled Active and Recently Administ ered Medications (unrecognized section and content) Medication Order 11/02/2021 11/03/2021 11/04/2021 dexamethasone (DECADRON) injection 10 mg (COMPLETED) 10 mg, IntraMUSCular, ONCE, On Ene 11/04/21 at 1130, For 1 dose 1125 (Given - Provid er: Halina Curry RN) ketorolac (TORADOL) injection 30 mg (COMPLETED) Ketorolac is contraindicated in patients with advanced renal impairment and in patients at risk of renal failure due to volume depletion. For 65 years of age and older OR weight less than 50 kg, use 15 mg IV every 6 hours; MAX dose: 60 mg/day. Dose greater than 30 mg must be administered via intramuscular route. Do not administer for more than 5 days., 30 mg, IntraMUSCular, ONCE, 1 dose, On Ene 11/04/21 at 1130, Do not administer for more than 5 days. 1124 (Given - Provid er: Halina Curry RN) Care Teams (unrecognized sec tion and content) Internal Specialist Relationship Specialty Start Date End Date Malou Jacinto MD [address] [place] [address], [place] [phone] PCP - General Family Medicine 10/11/21 Internal Specialist Relationship Specialty Start Date End Date Malou Jacinto MD [address] [place] [address], [address] [address] PCP - General Family Medicine 10/11/21 Internal Specialist Relationship Specialty Start Date End Date Malou Jacinto MD [address] [place] [address], [address] [address] PCP - General Family Medicine 10/11/21 Internal Specialist Relationship Specialty Start Date End Date Malou Jacinto MD [address] [place] [address], [address] [address] PCP - General Family Medicine 10/11/21 FOR RECORDS PERTAINING TO PATIENTS WHO ARE OR HAVE BEEN ENROLLED IN A CHEMICAL DEPENDENCY/SUBSTANCEABUSE PROGRAM, SOME INFORMATION MAY BE OMITTED. This clinical summary was aggregated from multiple sources. Caution should be exercised in using it in the provision of clinical care. This summary normalizes information from multiple sources, and as a consequence, information in this document may materially change the coding, format and clinical context of patient data. In addition, data may be omitted in some cases. CLINICAL DECISIONS SHOULD BE BASED ON THE PRIMARY CLINICAL RECORDS. [facility]. provides no warranty or guarantee of the accuracy or completeness of information in this document.
[2023-08-20] MEDS: BETAMETHASONE ACE/BETAMETHASONE SOD PHOS 30 MG/5 ML 12 MG IM (15:23)
== END 2023-08-20 15:50 | disposition home or self-care (01) ==
LOC: FBCO 15:04 → FBC 15:10
PROVIDERS: Visit Provider Obstetrics & Gynecology
DX: O36.8990 Maternal care for other specified fetal problems, unspecified trimester, not applicable or unspecified (principal); Z3A.00 Weeks of gestation of pregnancy not specified
CPT/HCPCS: 96372; J0702

== ENCOUNTER 2023-08-29 11:24 | Inpatient (IN) | payer OTHER, SELFPAY ==
[2023-08-29] VITALS (25 sets, daily range): BP systolic 101–160; BP diastolic 64–103; PULSE 58–93; RESP 9–24; TEMP 36.2–36.8; O2SAT 93–98
--- OUTSIDE RECORDS SUMMARY | 2023-08-29 11:33 | XMS_ITS | CCD ---
Author Name Unknown Address [address] [place] [address] Organization [facility] Care Team Providers Care Clam Dredger Name Role Phone HOUSE, SUREKHA Unavailable Unavailable HOUSE, SUREKHA Unavailable Unavailable HOUSE, SUREKHA Unavailable Unavailable HOUSE, SUREKHA Unavailable Unavailable SHINE AUGUSTIN Unavailable Unavailable HOUSE, SUREKHA Unavailable Unavailable HOUSE, SUREKHA Unavailable Unavailable Isiah LAI, [facility] Primary Care Provider Isiah LAI, [facility] Primary Care Provider ZARINA MAYA Referring Unavailable [facility] Primary Care Unavailable [facility] Primary Care Unavailable ANAIS MONTIEL Attending Unavailable IAIN SHAH Attending Unavailable [facility] Primary Care Unavailable MORA SKINNER Referring Unavailable [facility] Primary Care Unavailable MARQUEZ DANIELLE Attending [...] Results Test Name Value Interpretation Reference Range [facility] Basic Metabolic Panel 04-14 Anion gap [Moles/Vol] 12 mmol/L 9 - 17 mmol/L [facility] Calcium [Mass/Vol] 9.3 mg/dL 8.6 - 10. 4 mg/dL [facility] Chloride [Moles/Vol] 109 mmol/L High 98 - 10 7 mmol/L [facility] CO2 [Moles/Vol] 16 mmol/L Low 20 - 31 mmol/L [facility] Creatinine [Mass/Vol] 0.76 mg/dL 0.5 - 0.9 mg/dL [facility] GFR >60 60 - PI NF mL/min [facility] GFR Non- >60 60 - PINF mL/min [facility] GFR/1.73 sq M.predicted MDRD (S/P/Bld) [Vol rate/Area] [facility] Comment on above: Average GFR for 20-2 9 years old: 116 mL/min/1.73sq m Chronic Kidney Disease: <60 mL/min/1.73sq m Kidney failure: <15 mL/min/1.73sq m eGFR calculated using average adult body mass. Additional eGFR calculator available at: http://www.Neosens/Ticket Mavrix_crcl_2011.htm Glucose [Mass/Vol] 94 mg/dL 70 - 99 mg/dL [facility] Interpretation and review of laboratory results Abnormal [facility] Potassium [Moles/Vol] 4.0 mmol/L 3.7 - 5.3 mmol/L [facility] Sodium [Moles/Vol] 137 mmol/L 135 - 144 mmol/L [facility] Urea nitrogen (BldV) [Mass/Vol] 9 mg/dL 6 - 20 mg/dL [facility] Urea nitrogen/Creatinine (Bld) [Mass ratio] 12 9 - 20 [facility] Basic Metabolic Profon 04-23 (cont.) Normal [facility] Comment on above: Result Comment: Aver age GFR for 20-29 years old: 116 mL/min/1.73sq m Chronic Kidney Disease: <60 mL/min/1.73sq m Kidney failure: <15 mL/min/1.73sq m eGFR calculated using average adult body mass. Additional eGFR calculator available at: http://www.Neosens/multiple_crcl_2012.htm Performed By: #### B MP, MG #### [facility] [address] [facility] [place] [address] Compensation Manager: Ap Gutierrez MD Anion gap [Moles/Vol] 12 mmol/L Normal 9-17 [facility] Comment on above: Performed By: #### B MP, MG #### [facility] [address] [place] [address], [place] [address] Compensation Manager: Ap Gutierrez MD BUN/CRE Ratio 12 Normal 9-20 [facility] Comment on above: Performed By: #### B MP, MG #### [facility] [address] [place] [address] Compensation Manager: Ap Gutierrez MD Calcium [Mass/Vol] 9.3 mg/dL Normal 8.6-10.4 [facility] Comment on above: Performed By: #### B MP, MG #### [facility] [address] [place] [address], [place] [address] Compensation Manager: Ap Gutierrez MD Chloride [Moles/Vol] 109 mmol/L High 98-107 [facility] Comment on above: Performed By: #### B MP, MG #### [facility] [address] [place] [address], [place] [address] Compensation Manager: Ap Gutierrez MD CO2 [Moles/Vol] 16 mmol/L Low 20-31 [facility] Comment on above: Performed By: #### B MP, MG #### [facility] [address] [place] [address], [place] [address] Compensation Manager: Ap Gutierrez MD Creatinine [Mass/Vol] 0.76 mg/dL Normal 0.50-0.90 [facility] Comment on above: Performed By: #### B MP, MG #### [facility] [address] [place] [address] Compensation Manager: Ap Gutierrez MD GFR, Amer >60 Normal >60 [facility] Comment on above: Performed By: #### B MP, MG #### [facility] [address] [place] [address], [place] [address] Compensation Manager: Ap Gutierrez MD GFR,non Amer >60 Normal >60 [facility] Comment on above: Performed By: #### B MP, MG #### [facility] [address] [place] [address], [place] [address] Compensation Manager: Ap Gutirerez MD Glucose [Mass/Vol] 94 mg/dL Normal 70-99 [facility] Comment on above: Performed By: #### B MP, MG #### [facility] [address] [place] [address] Compensation Manager: Ap Gutierrez MD Potassium [Moles/Vol] 4.0 mmol/L Normal 3.7-5.3 [facility] Comment on above: Performed By: #### B MP, MG #### [facility] [address] [place] [address], [place] [address] Compensation Manager: Ap Gutierrez MD Sodium [Moles/Vol] 137 mmol/L Normal 135-144 [facility] Comment on above: Performed By: #### B MP, MG #### [facility] [address] [place] [address], [place] [address] Compensation Manager: Ap Gutierrez MD Urea nitrogen [Mass/Vol] 9 mg/dL Normal 6-20 [facility] Comment on above: Performed By: #### B MP, MG #### [facility] [address] [place] [address] Compensation Manager: Ap Gutierrez MD Magnesiumon 04-23-2022 Magnesium [Mass/Vol] 2.2 mg/dL Normal 1.6-2.6 [facility] Comment on above: Performed By: #### B MP, MG #### [facility] [address] [place] [address] [phone] Compensation Manager: Ap Gutierrez MD Magnesium [Mass/Vol] 2.2 mg/dL 1.6 - 2 .6 mg/dL [facility] No Panel Informationon 04-23 [facility] Microscopic Urinalysison Bacteria, UA 4+ Abnormal None [facility] Epithelial Cells UA 0 TO 4 [facility] Interpretation and review of laboratory results Abnormal [facility] Mucus, UA 2+ Abnormal None [facility] RBC, UA 0 TO 4 [facility] WBC, UA 0 TO [address] [facility] UA w/Reflex Cultureon 2021 Bilirubin, SemiQt,Ur Negative Normal [facility] Comment on above: Performed By: #### U AX, UMICAO #### [facility] [address] [place] [address] Compensation Manager: Ap Gutierrez MD Blood, Urine Negative Normal [facility] Comment on above: Performed By: #### U AX, UMICAO #### [facility] [address] [place] [address] Compensation Manager: Ap Gutierrez MD Glucose Ql (U) Negative Normal [facility] Comment on above: Performed By: #### U AX, UMICAO #### [facility] [address] [place] [address] Compensation Manager: Ap Gutierrez MD Ketones Ql (U) 2+ Abnormal NEG [facility] Comment on above: Performed By: #### U AX, UMICAO #### [facility] [address] [place] [address] Compensation Manager: Ap Gutierrez MD Leukocyte esterase Test strip Ql (U) Negative Normal [facility] Comment on above: Performed By: #### U AX, UMICAO #### [facility] [address] [place] [address] Compensation Manager: Ap Gutierrez MD Nitrite,Ur Negative Normal NEG [facility] Comment on above: Performed By: #### U AX UMICAO #### [facility] [address] [place] [address] Compensation Manager: Ap Gutierrez MD PH,Ur 6.0 Normal 5.0-6.0 [facility] Comment on above: Performed By: #### U AXREGLAICAO #### [facility] [address] [place] [address] Compensation Manager: Ap Gutierrez MD Protein Ql (U) Negative Normal NEG [facility] Comment on above: Performed By: #### U AX UMICAO #### [facility] [address] [place] [address] Compensation Manager: Ap Gutierrez MD Spec. [place],Ur 1.025 Normal 1.010-1.025 [facility] Comment on above: Performed By: #### U AXTERIO #### [facility] [address] [place] [address] Compensation Manager: Ap Gutierrez MD Urobilinogen,Ur Normal Normal NORM [facility] Comment on above: Performed By: #### U AXREGLAICAO #### [facility] [address] [place] [address] Compensation Manager: Ap Gutierrez MD Urinalysis with Reflex to Cu ltureon 03-24-2022 Bilirubin Urine Negative NEGATIVE [facility] Glucose, Ur Negative NEGATIVE [facility] Interpretation and review of laboratory results Abnormal [facility] Ketones Ql (U) 2+ Abnormal NEGATIVE [facility] Leukocyte esterase Test strip Ql (U) Negative NEGATIVE [facility] Nitrite, Urine Negative NEGATIVE [facility] pH, UA 6.0 5 - 6 [facility] Protein, UA Negative NEGATIVE [facility] Specific [place], UA 1.025 1.01 - 1.025 [facility] Urine Hgb Negative NEGATIVE [facility] Urobilinogen, Urine Normal Normal [facility] Urinalysis,Microon 2 Bacteria 4+ Abnormal NONE [facility] Comment on above: Performed By: #### U AXTERIO #### [facility] [address] [place] [address] Compensation Manager: Ap Gutierrez MD Epithelial cells LM Ql (Urine sed) 0 TO 4 Normal 0-5 [facility] Comment on above: Performed By: #### U AXTERIO #### [facility] [address] [place] [address] Compensation Manager: Ap Gutierrez MD Mucus Strands 2+ Abnormal [facility] [place] Comment on above: Performed By: #### U AXTERIO #### [facility] [address] [place] [address] Compensation Manager: Ap Gutierrez MD Urine RBC's 0 TO 4 Normal 0-4 [facility] Comment on above: Performed By: #### U AXREGLAICAO #### [facility] [address] [place] [address] Compensation Manager: Ap Gutierrez MD Urine WBC's 0 TO 4 Normal 0-4 [facility] Comment on above: Performed By: #### U AXREGLAICAO #### [facility] [address] [place] [address] Compensation Manager: Ap Gutierrez MD CT IAC POSTERIOR FOSSA [...] Lico Orosco MD 11/08/21 Final result Normal [facility] Unremarkable appearance of the temporal bones. [facility] RIS CONSOLIDATED EXAMINATION: CT OF THE INTERNAL [...] SINUSES: The visualized paranasal sinuses are clear. [facility] R[facility]SOL[facility] Lico Orosco MD - 11/08/2021 [...] IMPRESSION: Unremarkable appearance of the temporal bones. [employer] Phone: Radiology Study observation (narrative) [employer] Phone: CT IAC POSTERIOR FOSSA W CON TRASTOrdered By: Lico Orosco on 11-08-2021 [employer] Phone: CT HEAD WO CONTRASTon 2021 CT [...] Raj Araiza MD 11/04/21 Final result Normal [facility] HCG, ,Urineon 11-04 Beta HCG ( test) Ql (U) Negative Normal NEG [facility] Comment on above: Result Comment: Spec imens with hCG levels near the threshold of the test (25 mIU/mL) may give a negative or indeterminate result. In such cases, another test should be performed with a new specimen in 48-72 hours. If early is suspected clinically in this setting, correlation with quantitative serum b-hCG level is suggested. Performed By: #### U HCG #### [facility] [address] [place] [address] Compensation Manager: Ap Gutierrez MD , Urineon 2 Beta HCG ( test) Ql (U) Negative NEGATIVE [facility] Comment on above: Specimens with hCG l evels near the threshold of the test (25 mIU/mL) may give a negative or indeterminate result. In such cases, another test should be performed with a new specimen in 48-72 hours. If early is suspected clinically in this setting, correlation with quantitative serum b-hCG level is suggested. [facility] CBC AUTO DIFFon 10-18-2017 Basophils Auto #/vol (Bld) 0.0 103/ul Normal 0.0-0.1 [facility] Comment on above: Performed By: #### C BC ####[facility] [address] [place], [place] [address]Cxuyme Varsha Basophils/100 WBC Auto (Bld) 0.4 % Normal 0.2-2.0 [facility] Comment on above: Performed By: #### C BC ####[facility] [address] [place] [address]Rtsfdy Varsha Eosinophils 0.1 103/ul Normal 0.0-0.7 [facility] Comment on above: Performed By: #### C BC ####[facility] [address] [place] [address]Fkfkzb Varsha Eosinophils/100 leukocytes 1.7 % Normal 0.9-7.0 [facility] Comment on above: Performed By: #### C BC ####[facility] [address] [place], [place] [address]Wszven Varsha Erythrocyte distribution width Auto Ratio (RBC) 12.2 % Normal 11.0-15.0 [facility] Comment on above: Performed By: #### C BC ####[facility] [address] [place], [place] [address]Jcqnfv Varsha Erythrocytes (RBC) 4.20 106/ul Normal 4.20-5.40 [facility] Comment on above: Performed By: #### C BC ####[facility] X[address] Varsha Hematocrit (HCT) 38.7 % Normal 36.0-48.0 [facility] Comment on above: Performed By: #### C BC ####[facility] Ghiktvrvxy7[address] V[place]ha Hemoglobin mass conc (Bld) 12.8 g/dL Normal 12.0-16.0 [facility] Comment on above: Performed By: #### C BC ####[facility] [address] [place] [address] Varsha IG # 0.01 10e3/ul Normal 0.00-0.03 [facility] Comment on above: Performed By: #### C BC ####[facility] [address] [place] [address] Varsha IG % 0.1 % Normal 0.0-0.5 [facility] Comment on above: Performed By: #### C BC ####[facility] [address] [place] [address] Varsha Lymphocytes 2.2 103/ul Normal 1.2-3.8 [facility] Comment on above: Performed By: #### C BC ####[facility] [address] [place] [address] Varsha Lymphocytes/100 leukocytes 27.6 % Normal 20.5-60.0 [facility] Comment on above: Performed By: #### C BC ####[facility] [address] [place] [address] Varsha MANUAL DIFF REQ NO Normal [facility] Comment on above: Performed By: #### C BC ####[facility] [address] [place] [address] Varsha MCH 30.5 pg Normal 26.7-34.0 [facility] Comment on above: Performed By: #### C BC ####[facility] [address] [place], [place] [address]Germaida Maddox MCHC mass conc (RBC) 33.1 g/dL Normal 29.9-35.2 [facility] Comment on above: Performed By: #### C BC ####[facility] [address] [place] [phone] Varsha MCV 92.1 fL Normal 81.0-99.0 [facility] Comment on above: Performed By: #### C BC ####[facility] [address] [place] [phone] Varsha Monocytes 0.6 103/ul Normal 0.3-0.8 [facility] Comment on above: Performed By: #### C BC ####[facility] [address] [place] [phone] Varsha Monocytes/100 leukocytes 7.3 % Normal 1.7-12.0 [facility] Comment on above: Performed By: #### C BC ####[facility] [address] [place] [phone] Varsha Neutrophils 4.9 103/ul Normal 1.4-6.5 [facility] Comment on above: Performed By: #### C BC ####[facility] U[address] [place] [phone] Varsha Neutrophils/100 WBC Auto (Bld) 62.9 % Normal 43.0-75.0 [facility] Comment on above: Performed By: #### C BC ####[facility] [address]plsks0890 [place] [phone] Maddox Platelet mean volume (PMV) 10.0 fL Normal 9.5-13.5 [facility] Comment on above: Performed By: #### C BC ####[facility] [address] [place] [phone] Varsha Platelets 273 103/ul Normal 150-450 [facility] Comment on above: Performed By: #### C BC ####[facility] [address] [place] [phone] Varsha WBC (Leukocytes) 7.8 103/ul Normal 4.0-11.0 The [facility] Comment on above: Performed By: #### C BC ####[facility] V[address] [place] PROF 14(COMP METB)on 018 Alanine aminotransferase (ALT) 31 U/L Normal 9-52 [facility] Comment on above: Performed By: #### C MP ####[facility] Uv[address]flecxo[address] [place] Albumin 4.2 g/dL Normal 3.5-5.0 [facility] Comment on above: Performed By: #### C MP ####[facility] [address] [place] [address] Varsha Albumin/Globulin Ratio 1.4 {ratio} Normal [facility] Comment on above: Performed By: #### C MP ####[facility] [address] [place] [address] Varsha Alkaline phosphatase (ALP) 69 U/L Normal 38-126 [facility] Comment on above: Performed By: #### C MP ####[facility] [address] [place] [address] Varsha Anion gap 12.7 mmol/L Normal [facility] Comment on above: Performed By: #### C MP ####[facility] [address] [place] [address] Varsha Aspartate aminotransferase (AST) 28 U/L Normal 14-36 [facility] Comment on above: Performed By: #### C MP ####[facility] [address] [place] [address] Varsha Bilirubin Ql (U) 0.4 mg/dL Normal 0.2-1.3 The [facility] Comment on above: Performed By: #### C MP ####[facility] [address] [place] [address] Varsha BUN/Creatinine Ratio 22.4 mg/mg Normal [facility] Comment on above: Performed By: #### C MP ####[facility] [address] [place] [address] Varsha Calcium 9.3 mg/dL Normal 8.4-10.2 [facility] Comment on above: Performed By: #### C MP ####[facility] [address] [place] [id number] Varsha Chloride 100 mmol/L Normal 98-107 [facility] Comment on above: Performed By: #### C MP ####[facility] [address] [place] [id number] Varsha CO2 27.0 mmol/L Normal 22.0-30.0 [facility] Comment on above: Performed By: #### C MP ####[facility] [address] [place] Creatinine 0.64 mg/dL Normal 0.52-1.04 [facility] Comment on above: Performed By: #### C MP ####[facility] [address] [place] [id number] Varsha eGFR (non-black) mL/min/{1.73_m2} Normal >=60 [facility] Comment on above: Performed By: #### C MP ####[facility] [address] [place] [id number] Varsha Globulin 2.9 g/dL Normal [facility] Comment on above: Performed By: #### C MP ####[facility] [address] [place] [id number] V[place]ha Glucose mass conc 88 mg/dL Normal 74-106 The [facility] Comment on above: Performed By: #### C MP ####[facility] E[address] [place] [id number] Varsha Potassium molar conc 3.8 mmol/L Normal 3.4-5.0 [facility] Comment on above: Performed By: #### C MP ####[facility] [address] [place] [address]Gerken Varsha Protein 7.2 g/dL Normal 6.1-8.2 [facility] Comment on above: Performed By: #### C MP ####[facility] [address] [place], [place] [address]Pctdqd Varsha Sodium 136 mmol/L Critically low 137-[address] [facility] Comment on above: Performed By: #### C MP ####[facility] [address] [place], [place] [address]Krwhnd Varsha Urea nitrogen 14.0 mg/dL Normal 6.4-19.3 The [facility] Comment on above: Performed By: #### C MP ####[facility] [address] [place], [place] [address]Yomjcm Varsha XR SCOLIOSIS SERIES 2-3 Von 10-18-2017 XR SCOLIOSIS SERIES 2-3 [address] [place] [address] Patient: JUAN CARLOS TURNER Exam Date: 10/18/2017DOB: 2000 Gender:F : DR SUREKHA NICHOLSON Admission #: [id number] : Order #: [id number] HERE TO VIEW EXAM RADIOLOGY REPORT PROCEDURE: [...] Shine Augustin M.D. on 10/18/2017 at 17:16 [facility] Vital Signs Date Time Vital Sign Value Performing Clinician Faci lity 04-23-2022 14:51-0400 Body temperature 99.1 [degF] Anais Montiel MD Work Phone: [facility] [employer] 04-23-2022 14:45-0400 SaO2% (BldA) [Mass fraction] 99 % Anais Montiel MD Work Phone: [facility] [employer] 04-23-2022 14:30-0400 Diastolic blood pressure 72 mm[Hg] Anais Montiel MD Work Phone: [facility] 04-23-2022 14:30-0400 Heart rate 57 /min Anais Montiel MD Work Phone: [facility] [employer] 04-23-2022 14:30-0400 Respiratory rate 16 /min Anais Montiel MD [facility] [employer] [facility] 04-23-2022 14:30-0400 Systolic blood pressure 109 mm[Hg] Anais Montiel MD Work Phone: [facility] 04-23-2022 13:58-0400 Body height 167.6 cm Anais Montiel MD Work Phone: [facility] [employer] 04-23-2022 13:58-0400 Body mass index (BMI) [Ratio] 24.95 kg/m2 Anais Montiel MD Work Phone: [facility] [employer] 04-23-2022 13:58-0400 Body weight 70.13 kg Anais Montiel MD Work Phone: [facility] 11-04-2021 11:01-0400 Body height 170.2 cm [facility] [place] [facility] 11-04-2021 11:01-0400 Body mass index (BMI) [Ratio] 28.19 kg/m2 [facility] [place] [facility] 11-04-2021 11:01-0400 Body temperature 97.9 [degF] [facility] [place] [facility] 11-04-2021 11:01-0400 Body weight 81.65 kg [facility] 11-04-2021 11:01-0400 Diastolic blood pressure 96 mm[Hg] [facility] 11-04-2021 11:01-0400 Heart rate 86 /min [facility] 11-04-2021 11:01-0400 Respiratory rate 18 /min [facility] 11-04-2021 11:01-0400 SaO2% (BldA) [Mass fraction] 99 % [facility] 11-04-2021 11:01-0400 Systolic blood pressure 147 mm[Hg] [facility] Encounters Encounter Date Encounter Type Care Provider Facility Start: 08-10-2023 End: 08-10-2023 ambulatory MARQUEZ DANIELLE Not Available Start: 07-27-2023 End: 07-27-2023 ambulatory MARQUEZ SHASHI Not Available Start: 07-12-2023 End: 07-12-2023 ambulatory EVERARDO OLIVEIRA Not Available Start: 04-23-2022 End: 04-23-2022 Emergency department patient visit LUANNPATTY JACINTO [facility] Start: 04-23-2022 End: 04-23-2022 Emergency department patient visit Anais Montiel MD Work Phone: [facility] ED Comment on above: Dehydration (Primary Dx) Start: 03-24-2022 End: 03-25-2022 ambulatory MORA Lofton [facility] Start: 03-24-2022 End: 03-24-2022 Subsequent hospital visit by physician Malou Jacinto MD Work Phone: Laboratory Comment on above: Painful urination Start: 11-08-2021 End: 11-11-2021 ambulatory [facility] Start: 11-08-2021 End: 11-10-2021 Subsequent hospital visit by physician [facility] Room [facility] CT Scan Comment on above: Pulsatile tinnitus, right ear Start: 11-04-2021 End: 11-04-2021 Emergency department patient visit Iain Shah DO [facility] ED Comment on above: Chronic nonintractab le headache, unspecified headache type (Primary Dx); Earache on right Start: 10-23-2017 Ambulatory [facility] Facility: Start: 10-18-2017 End: 10-19-2017 Ambulatory [facility] Facility: Procedures Date Procedure Procedure Detail Performing Clinician Start: 04-23-2022 Basic metabolic pane l calcium total Anais Montiel MD Work Phone: Start: 03-24-2022 Urinalysis microscop ic only Mora Skinner [employer] REPA[employer] SUPERVISOR - HAND DRAWER IN Work Phone: Start: 03-24-2022 Urnls dip stick/tabl et rgnt auto w/o microscopy Mora Skinner [employer] REPAIR SUPERVISOR - HAND DRAWER IN Work Phone: Start: 11-08-2021 Ct orbit sella/post fossa/ear w/contrast matrl Zarina Maya MD Work Phone: Start: 11-04-2021 Ct head/brain w/o co ntrast material Iain Shah DO Start: 11-04-2021 Urine test visual color cmprsn meths Iain Shah DO Plan of Treatment Date Care Activity Detail Author Start: 03-24-2023 Depression Screen Depression Screen MISHA STEINER [facility] Start: 08-17-2022 DTaP/Tdap/Td vaccine (6 - Td or Tdap) DTaP/Tdap/Td vaccine (6 - Td or Tdap) [facility] Start: 05-03-2022 End: 05-03-2022 Patient encounter procedure 05/03/2022 Office Visit Infectious Diseases Joseph Cotton MD [address] [address] [facility] Infectious Disease Start: 04-14-2022 Influenza vaccination Flu vaccine (#1) [facility] Start: 11-23-2021 End: 11-23-2021 Patient encounter procedure 11/23/2021 Office Visit Otolaryngology Zarina Maya MD [address] [place] [address] [facility] Start: 11-08-2021 End: 11-08-2021 Patient encounter procedure 11/08/2021 Appointment Radiology [facility] CT Scan Start: 09-28-2021 COVID-19 Vaccine (3 - Booster for Pfizer series) COVID-19 Vaccine (3 - Booster for Pfizer series) [facility] Start: 04-14-2021 Influenza vaccination Flu vaccine (#1) [facility] Start: 2020 Screening for malignant neoplasm of cervix Pap smear [facility] Start: 2017 Hepatitis C screening Hepatitis C screen [facility] Start: 2015 Screening for Chlamydia trachomatis Chlamydia screen [facility] Start: 2014 HIV screening HIV screen [facility] Start: 2011 Depression Screen Depression Screen [facility] Start: 2010 HPV vaccine (1 - 2-dose series) HPV vaccine (1 - 2-dose series) [facility] Start: 1999 Hepatitis C screening Hepatitis C screen [facility] CT HEAD WO CONTRAST CT HEAD WO C ONTRAST Imaging STAT 11/04/2021 11:53 AM EDT [facility] Payers Date Payer Category Payer Unknown [id number] 1999 Unknown [id number] 1999 Unknown [id number] 1999 Unknown [id number] 1999 Unknown [id number] 1999 Unknown [id number] 1999 Unknown [id number] 1959 Self-pay [id number] 1959 Unknown [id number] Social History Date Type Detail Facility Start: 10-11-2021 End: 03-24-2022 Tobacco smoking status GAIS Never smoked tobacco [employer] Phone: Start: 10-11-2021 End: 03-24-2022 Tobacco use and exposure Smokeless tobacco non-user [employer] Phone: Start: 11-04-2021 End: 04-23-2022 Alcohol intake Lifetime non-drinker (finding) [employer] Phone: Start: 10-11-2021 History SDOH Alcohol Frequency 1 [employer] Phone: Start: 1999 Sex Assigned At Not on file [employer] Phone: Start: 10-25-2021 End: 04-23-2022 Exposure to SARS-CoV-2 (event) Not sure [employer] Phone: Hospital Discharge instructions 04-23-2022 Discharge InstructionsAttachments [...] a follow up appointment THANK YOU!!! From [facility] and [facility] On behalf of the Emergency Department staff at [facility], I would like to thank you for giving us the opportunity to address your health care needs and concerns. We hope that during your visit, our service was delivered in a professional and caring manner. Please keep [facility] in mind as we walk with [...] how we did during your visit at [email or web address] and let us know about your experience The following attachments cannot be sent through Care Everywhere.Dehydration (Bermudian)documented in this encounter MISHA STEINER [employer] Work Phone: Hospital Discharge instructions 11-01-2021 InstructionsAttachments Note Date & Type Note Facility 11-01-2021 Hospital Discharg e instructions Iain Shah DO - 11/04/2021 Follow-up with ENT Follow-up on Monday for your CAT scan Motrin or Tylenol for pain Return immediately if any worsening symptoms or any other concerns Tell us how we did visit: [email or web address] and let us know about your experience The following attachments cannot be sent through Care Everywhere.Earache: Adult (Bermudian)Headache (Bermudian)documented in this encounter [employer] Phone: Evaluation note Note Date & Type Note Facility Evaluation note Diagnosis Chronic nonintractable headache, unspecified headache type- Primary Earache on right Otalgia, unspecified documented in this encounter [employer] Phone: Evaluation note Note Date & Type Note Facility Evaluation note Diagnosis Pulsatile tinnitus, right ear documented in this encounter [employer] Phone: Evaluation note Note Date & Type Note Facility Evaluation note Diagnosis Painful urination Dysuria documented in this encounter [facility] [employer] [facility] Phone: Evaluation note Note Date & Type Note Facility Evaluation note Diagnosis Dehydration- Primary documented in this encounter [facility] [employer] [facility] Phone: Summary Purpose Family History No Family [...] W CONTRAST Zarina Maya MD [address] [place] [address] Referral ID Status Reason Start Date Expiration Date Visits Re quested Visits Authorized [id number] Closed 11/05/2021 12/05/2021 1 1 Additional Source Comments INFORMATION SOURCE (unrecogn ized section and content) DATE CREATED AUTHOR 02/02/2018 [facility] DATE CREATED AUTHOR AUTHOR'S ORGANIZ ATION 04/23/2022 [facility] DATE CREATED AUTHOR AUTHOR'S ORGANIZ ATION 08/12/2023 [facility] EPIC Reason for Visit (unrecogniz ed section and content) Reason Comments Headache Specialty Diagnoses / Procedures Referred By Nasreen kraus Referred To Contact Radiology Diagnoses Pulsatile tinnitus, right ear Procedures CT IAC POSTERIOR FOSSA W CONTRAST Zarina Maya MD [address] [place] [address] Referral ID Status Reason Start Date Expiration Date Visits Re quested Visits Authorized [id number] Closed 11/05/2021 12/05/2021 1 1 Reason Comments [...] Care Teams (unrecognized sec tion and content) Clam Dredger Relationship Specialty Start Date End Date Malou Jacinto MD [address] [place] [address], [address] [address] PCP - General Family Medicine 10/11/21 Clam Dredger Relationship Specialty Start Date End Date Malou Jacinto MD [address] [place] [address], [address] [address] PCP - General Family Medicine 10/11/21 Clam Dredger Relationship Specialty Start Date End Date Malou Jacinto MD [address] [place] [address], [address] [address] PCP - General Family Medicine 10/11/21 Clam Dredger Relationship Specialty Start Date End Date Malou Jacinto MD [address] [place] [address], [address] [address] PCP - General Family Medicine 10/11/21 FOR [...] BE BASED ON THE PRIMARY CLINICAL RECORDS. [employer] [facility]. provides no warranty or guarantee of the accuracy or completeness of information in this document.
[2023-08-29 12:38] LABS: Bilirubin Urine NEGATIVE (NEGATIVE); Blood Urine NEGATIVE (NEGATIVE); Clarity Urine CLEAR (CLEAR); Color Urine LT. YELLOW (YELLOW); Glucose Urine UA NEGATIVE (NEGATIVE); Ketones Urine NEGATIVE (NEGATIVE); Leukocyte Esterase Urine LARGE (NEGATIVE); Nitrite Urine NEGATIVE (NEGATIVE); Protein Urine NEGATIVE (NEG/TRACE); Specific Gravity Urine <=1.005 (1.005-1.025); Urobilinogen Urine 0.2 EU/dL (0.2-1.0); pH Urine 5.5 (5.0-9.0)
[2023-08-29 12:40] LABS: Urine Microscopic Indicated YES
[2023-08-29 12:40] LABS: Basophils Percent Auto 0.1 % (0.2-2.0); Eosinophils Absolute Auto 0.1 10^3/uL (0.0-0.7); Eosinophils Percent Auto 0.6 % (0.9-7.0); Hematocrit 34.8 % (36.0-48.0); Hemoglobin 11.9 g/dL (12.0-16.0); Immature Granulocytes Abs Auto 0.05 10^3/uL (0.00-0.03); Immature Granulocytes Pct Auto 0.5 % (0.0-0.5); Lymphocytes Absolute Auto 1.5 10^3/uL (1.2-3.8); Lymphocytes Percent Auto 15.8 % (20.5-60.0); Mean Corpuscular HGB Conc 34.2 g/dL (29.9-35.2); Mean Corpuscular Volume 93.5 fL (81.0-99.0); Monocytes Absolute Auto 0.8 10^3/uL (0.3-0.8); Monocytes Percent Auto 8.1 % (1.7-12.0); Neutrophils Absolute Auto 7.2 10^3/uL (1.4-6.5); Neutrophils Percent Auto 74.9 % (43.0-75.0); Platelet Count 202 10^3/uL (150-450); Red Blood Count 3.72 10^6/uL (4.20-5.40); Red Cell Distribution Width 12.3 % (11.0-15.0); White Blood Count 9.7 10^3/uL (4.0-11.0)
[2023-08-29 12:53] LABS: Partial Thromboplastin Time 27.3 sec (22.3-36.2); Prothrombin Time 9.5 sec (9.0-11.6)
[2023-08-29 12:55] LABS: Alanine Aminotransferase 17 U/L (14-59); Aspartate Amino Transferase 15 U/L (15-37); Estimated GFR (African America >60 (>=60); Estimated GFR (Non-African Ame >60 (>=60); Uric Acid 7.1 mg/dL (2.6-6.0)
[2023-08-29 13:04] LABS: INR <0.93
[2023-08-29 13:10] LABS: Bacteria Urine LARGE #/HPF (NONE SEEN); Mucus Urine NONE SEEN (NONE SEEN); RBC Urine NONE SEEN #/HPF (0-2); Squamous Epithelial Cell Urine FEW #/LPF (NONE/RARE); Urine Culture Indicated YES
[2023-08-29 13:26] LABS: Fibrinogen 385 mg/dL (200-400)
[2023-08-29 14:36] LABS: Amphetamine Screen Urine NEGATIVE (NEGATIVE); Barbiturates Screen Urine NEGATIVE (NEGATIVE); Benzodiazepines Screen Urine NEGATIVE (NEGATIVE); Buprenorphine Screen Urine NEGATIVE (NEGATIVE); Cannabinoid Screen Urine NEGATIVE (NEGATIVE); Cocaine Screen Urine NEGATIVE (NEGATIVE); Methadone Screen Urine NEGATIVE (NEGATIVE); Methamphetamines Screen Urine NEGATIVE (NEGATIVE); Opiate Screen Urine NEGATIVE (NEGATIVE); Oxycodone Screen Urine NEGATIVE (NEGATIVE); Phencyclidine Screen Urine NEGATIVE (NEGATIVE); Tricyclic Antidepressant Urine NEGATIVE (NEGATIVE)
[2023-08-29] MEDS: 0.9 % SODIUM CHLORIDE 1,000 ML 1000 ML IV ×2 (15:20→16:09)
[2023-08-29] MEDS: CEFAZOLIN SODIUM/DEXTROSE,ISO 2 GM/50 ML PIGGYBACK IV ×2 (16:13→22:12)
[2023-08-29] MEDS: FAMOTIDINE/PF 20 MG/2 ML VIAL IV (16:13)
[2023-08-29] MEDS: LACTATED RINGER'S SOLUTION 1,000 ML 50 ML IV (17:05)
--- NOTE | 2023-08-29 17:07 | P.ON_ITS ---
Brief Operative Note Date of procedure: 08/29/23 Pre-op diagnosis: iup at 36 2/7wks, twin gestation, preeclampsia Post-op diagnosis: same as pre-op Procedure: NAME OF PROCEDURE: [ section ] PROCEDURE: Patient was taken back to the Operating Room where she was given a spinal anesthesia with Duramorph without difficulty. She was prepped and draped in the normal sterile fashion. A Pfannenstiel skin incision was then made 2 cm above the symphysis pubis and carried down to underlying rectus fascia using a Bovie. The fascia was incised in the midline and extended laterally using Calderon scissors. Two Jorge Luis clamps were placed on the superior aspect of the fascia and dissected off the underlying rectus muscles. The same was performed on the inferior aspect as well. The muscles were then in the midline. Peritoneum was identified and entered bluntly. The peritoneum was then extended superiorly and inferiorly with good visualization of the bladder. The bladder blade was inserted. A low transverse incision was made on the patient's uterus and extended laterally digitally. The infants were then delivered atraumatically after the bladder blade was removed with twin a in the breech position and twin b cephalic position. The cords were clamped and cut. one clamp on twin a and two clamps on twin b Cord blood was obtained. The infant was handed off to awaiting team. The patient's placenta was spontaneously delivered. The uterus was then exteriorized. The uterus was cleared of all clots and debris. The bladder blade was reinserted. The patient's uterine incision was closed using #0 Vicryl in a running lock fashion. Excellent hemostasis was assured. The uterus was then returned to the patient's abdomen. The patient's abdomen was copiously irrigated using warm saline. Peritoneal gutters were cleared of all clots and debris. Again excellent hemostasis was assured. The patient's peritoneum was closed using 3-0 Vicryl in a running fashion. The patient's fascia was closed using #0 Vicryl in a running fashion. The patient's skin was closed using 4-0 Vicryl subcuticularly. The patient tolerated the procedure well. Sponge, lap, and needle counts were correct x2. The patient was taken to the Recovery Room in stable condition. Anesthesia: spinal Surgeon: Ramirez Yanez Replenishment Merchandising Associate: Suri Gleason Estimated blood loss (mL): 700 Pathology: other (placenta) Condition: stable Disposition: PACU Urinary Catheter Management Urinary Catheter Management Urethral: Cath placed during this visit: no
--- NOTE | 2023-08-29 17:10 | PM.OBPRCCS ---
Procedure Pre-op/Post-op diagnoses: Pre-Op/Post-Op Diagnoses Operation Date: 08/29/23 16:30 <No data on this case meets the specified criteria> Procedure: Procedures Operation Date: 08/29/23 16:30 Actual Procedure Side Surgeon p Not Applicable Ramirez Yanez DO Cnc Machine Programmer: Suri Gleason Estimated blood loss (mL): 700 Disposition: PACU Anesthesia type: Spinal
[2023-08-29] MEDS: OXYTOCIN/0.9 % SODIUM CHLORIDE 20 UNITS/1,000 ML PLAST..BAG 200 UNIT IV (17:36)
[2023-08-29] MEDS: ONDANSETRON PF 4 MG/2 ML VIAL IV (19:24)
[2023-08-29] MEDS: PROMETHAZINE HCL 25 MG TABLET 12.5 MG PO (20:36)
[2023-08-30 00:22] VITALS: BP 136/81; PULSE 88; RESP 16; TEMP 37
[2023-08-30] MEDS: KETOROLAC TROMETHAMINE 30 MG/ML VIAL IVP ×4 (00:29→19:36)
[2023-08-30 04:07] VITALS: BP 144/83; PULSE 78; RESP 16; TEMP 36.8
[2023-08-30 05:34] VITALS: BP 135/78; PULSE 83
[2023-08-30 06:28] LABS: Basophils Percent Auto 0.1 % (0.2-2.0); Hematocrit 29.1 % (36.0-48.0); Hemoglobin 9.5 g/dL (12.0-16.0); Immature Granulocytes Abs Auto 0.08 10^3/uL (0.00-0.03); Immature Granulocytes Pct Auto 0.5 % (0.0-0.5); Lymphocytes Absolute Auto 1.8 10^3/uL (1.2-3.8); Lymphocytes Percent Auto 10.3 % (20.5-60.0); Mean Corpuscular HGB Conc 32.6 g/dL (29.9-35.2); Mean Platelet Volume 12.2 fL (9.5-13.5); Monocytes Absolute Auto 1.2 10^3/uL (0.3-0.8); Neutrophils Absolute Auto 14.2 10^3/uL (1.4-6.5); Neutrophils Percent Auto 82.1 % (43.0-75.0); Platelet Count 157 10^3/uL (150-450); Red Blood Count 2.97 10^6/uL (4.20-5.40); Red Cell Distribution Width 12.5 % (11.0-15.0); White Blood Count 17.3 10^3/uL (4.0-11.0)
--- NOTE | 2023-08-30 07:57 | PM.OBPN ---
OB - PN: Subj Subjective Patient comments: no complaints and pain well controlled [place] status: doing well Exam Constitutional Vital Signs, click to edit/add: Last Vital Signs Temp 98.2 F 08/30/23 04:07 Pulse 83 08/30/23 05:34 Resp 16 08/30/23 04:07 BP 135/78 08/30/23 05:34 Pulse Ox 93 L 08/29/23 19:00 O2 Del Method Room Air 08/29/23 18:00 Documenting provider has reviewed patient's vital signs: yes Common normals: no apparent distress Respiratory Common normals: normal respiratory effort and clear to auscultation bilaterally Cardio Common normals: regular rate and regular rhythm GI Common normals: Normal to inspection, nondistended, normoactive bowel sounds present Extremity Common normals: normal to inspection and no calf tenderness Results Labs Labs: Short CBC 08/29/23 08/30/23 Range/Units 12:28 06:08 WBC 9.7 17.3 H (4.0-11.0) 10^3/uL Hgb 11.9 L 9.5 L (12.0-16.0) g/dL Hct 34.8 L 29.1 L (36.0-48.0) % Plt Count 202 157 (150-450) 10^3/uL BMP 08/29/23 12:28 BUN 9.0 Creatinine 0.74 Liver Function 08/29/23 Range/Units 12:28 AST 15 (15-37) U/L ALT 17 (14-59) U/L Urine 08/29/23 Range/Units 11:50 Urine Color Lt. yellow (YELLOW) Urine Clarity Clear (CLEAR) Urine pH 5.5 (5.0-9.0) Ur Specific [place] <=1.005 A (1.005-1.025) Urine Protein Negative (NEG/TRACE) mg/dL Urine Glucose (UA) Negative (NEGATIVE) mg/dL Urinary Catheter Management Urinary Catheter Management Urethral: Cath placed during this visit: no OB - PN: A/P Plan - day: 1 Plan: routine postop care Time Spent with Patient Time: Total time spent is greater than 50% in coordination of care (as documented) at patient's floor/unit and/or counseling patient: Total time spent with greater than 50% in coordination of care (as documented) at patient's floor/unit and/or counseling patient: less than 15 minutes
--- NOTE | 2023-08-30 08:20 | PC.NURSE ---
patient states visual changes are normal baseline for her, denies any significant changes or disturbances at this time
[2023-08-30 10:47] VITALS: BP 126/83; PULSE 67; RESP 16; TEMP 36.9
[2023-08-30] MEDS: DOCUSATE SODIUM 100 MG CAPSULE PO ×2 (10:47→21:00)
[2023-08-30 14:40] VITALS: BP 136/90; PULSE 84; RESP 16
[2023-08-30 19:39] VITALS: BP 134/86; PULSE 71; RESP 16; TEMP 36.8
[2023-08-31] MEDS: KETOROLAC TROMETHAMINE 30 MG/ML VIAL IVP (01:52)
[2023-08-31 01:55] VITALS: BP 136/85; PULSE 64; TEMP 36.7
[2023-08-31] MEDS: IBUPROFEN 400 MG TABLET 800 MG PO ×2 (07:49→17:33)
[2023-08-31] MEDS: DOCUSATE SODIUM 100 MG CAPSULE PO ×2 (07:50→20:33)
[2023-08-31 07:56] VITALS: BP 124/78; PULSE 72; RESP 16; TEMP 36.9
--- NOTE | 2023-08-31 10:41 | PC.NURSE ---
Given information on LPI babies and . Discussed feeding plans and parents verbalized understanding.
[2023-08-31 18:31] VITALS: BP 123/79; PULSE 80; RESP 18; TEMP 37.1
[2023-08-31 22:43] VITALS: BP 130/80; PULSE 79
[2023-08-31 23:00] VITALS: BP 130/80; PULSE 79; RESP 18; TEMP 37.1
[2023-09-01] MEDS: IBUPROFEN 400 MG TABLET 800 MG PO ×3 (02:10→18:55)
--- NOTE | 2023-09-01 07:48 | W.PC.ACHO ---
Registration Status: ADM IN Primary Language: Georgian Preferred Language: Georgian Report received from Johann Rachel RN. Active Medications Generic Name Dose Route Start Last Admin Trade Name Freq PRN Reason Stop Dose Admin Al Hydroxide/Mg Hydroxide 2,400 mg 08/29/23 17:11 Magnesium Hydroxide 2,400 Mg/10 Ml Oral.Susp PO Q6H PRN Dyspepsia Docusate Sodium 100 mg 08/30/23 09:00 08/31/23 20:33 Docusate Sodium 100 Mg Capsule PO 100 mg BID CECELIA Administration Sodium Chloride 1,000 mls @ 125 mls/hr 08/29/23 17:15 Sodium Chloride 0.9% 1,000 Ml IV .Q8H CECELIA Ibuprofen 800 mg 08/29/23 17:11 09/01/23 02:10 Ibuprofen 400 Mg Tablet PO 800 mg Q8H PRN Administration Pain Ondansetron HCl 4 mg 08/29/23 17:11 08/29/23 19:24 Ondansetron Pf 4 Mg/2 Ml Vial IV 4 mg Q6H PRN Administration Nausea And Vomiting Ondansetron HCl 4 mg 08/29/23 17:11 Ondansetron 4 Mg Rapdis Tablet PO Q6H PRN Nausea And Vomiting Oxycodone/Acetaminophen 1 tab 08/29/23 17:11 Oxycodone Hcl/Acetaminophen 5mg/325mg PO Q4H PRN Pain Scale 4-6 Oxycodone/Acetaminophen 2 tab 08/29/23 17:11 Oxycodone Hcl/Acetaminophen 5mg/325mg PO Q4H PRN Pain Scale 7-10 Promethazine HCl 12.5 mg 08/29/23 20:04 08/29/23 20:36 Promethazine Hcl 25 Mg Tablet PO 12.5 mg Q4H PRN Administration emesis Senna 17.2 mg 08/29/23 20:00 Sennosides 8.6 Mg Tablet PO QHS PRN Constipation Simethicone 80 mg 08/29/23 17:11 Simethicone 80 Mg Tab.Chew PO QID PRN Abdominal Distention Respiratory Oxygen Delivery Method Room Air Oxygen Delivery Method Room Air Oxygen Delivery Method Room Air Oxygen Delivery Method Room Air Cardiology Heart Sounds Strong Heart Sounds Strong Heart Sounds Strong,Regular Bowels Bowel Pattern Constipated,No Bowel Movement Date of Last Bowel Movement 08/31/23 Date of Last Bowel Movement 08/29/23 Renal Bladder Pattern Continent Bladder Pattern Continent Bladder Pattern Continent
--- NOTE | 2023-09-01 07:48 | PM.OBPN ---
OB - PN: Subj Subjective Patient comments: no complaints and pain well controlled [place] status: doing well Exam Constitutional Vital Signs, click to edit/add: Last Vital Signs Temp 98.8 F 08/31/23 23:00 Pulse 79 08/31/23 23:00 Resp 18 08/31/23 23:00 BP 130/80 08/31/23 23:00 Pulse Ox 93 L 08/29/23 19:00 O2 Del Method Room Air 08/31/23 23:00 Documenting provider has reviewed patient's vital signs: yes Common normals: no apparent distress Respiratory Common normals: normal respiratory effort and clear to auscultation bilaterally Cardio Common normals: regular rate and regular rhythm GI Common normals: Normal to inspection, nondistended, normoactive bowel sounds present Extremity Common normals: no clubbing, cyanosis or edema and no calf tenderness Urinary Catheter Management Urinary Catheter Management Urethral: Cath placed during this visit: yes, but has since been removed by the nurse Removal date: 08/30/23 Removal time: 11:45 OB - PN: A/P Plan - day: 3 Plan: routine postop care, discharge home and other (1wk) Time Spent with Patient Time: Total time spent is greater than 50% in coordination of care (as documented) at patient's floor/unit and/or counseling patient: Total time spent with greater than 50% in coordination of care (as documented) at patient's floor/unit and/or counseling patient: less than 15 minutes
--- NOTE | 2023-09-01 07:49 | PM.OBPN ---
OB - PN: Subj Subjective Patient comments: no complaints and pain well controlled Exam Constitutional Vital Signs, click to edit/add: Last Vital Signs Temp 98.8 F 08/31/23 23:00 Pulse 79 08/31/23 23:00 Resp 18 08/31/23 23:00 BP 130/80 08/31/23 23:00 Pulse Ox 93 L 08/29/23 19:00 O2 Del Method Room Air 08/31/23 23:00 Documenting provider has reviewed patient's vital signs: yes Common normals: no apparent distress Respiratory Common normals: normal respiratory effort and clear to auscultation bilaterally Cardio Common normals: regular rate and regular rhythm GI Common normals: Normal to inspection, nondistended, normoactive bowel sounds present Extremity Common normals: no clubbing, cyanosis or edema and no calf tenderness Urinary Catheter Management Urinary Catheter Management Urethral: Cath placed during this visit: yes, but has since been removed by the nurse Removal date: 08/30/23 Removal time: 11:45 OB - PN: A/P Plan - day: 2 Plan: routine postop care Time Spent with Patient Time: Total time spent is greater than 50% in coordination of care (as documented) at patient's floor/unit and/or counseling patient: Total time spent with greater than 50% in coordination of care (as documented) at patient's floor/unit and/or counseling patient: less than 15 minutes
[2023-09-01] MEDS: DOCUSATE SODIUM 100 MG CAPSULE PO ×2 (08:13→21:26)
[2023-09-01 10:20] VITALS: RESP 16; TEMP 36.5
[2023-09-01 10:35] VITALS: BP 139/82; PULSE 87
[2023-09-01] MEDS: SIMETHICONE 80 MG TAB.CHEW PO ×2 (11:14→21:26)
[2023-09-01 17:45] VITALS: BP 132/91; PULSE 90; RESP 16; TEMP 36.9; O2SAT 97
--- NOTE | 2023-09-01 19:33 | W.PC.ACHO ---
Registration Status: ADM IN Primary Language: Congolese Preferred Language: Congolese report given to Johann Rachel RN at 1900. Active Medications Generic Name Dose Route Start Last Admin Trade Name Freq PRN Reason Stop Dose Admin Al Hydroxide/Mg Hydroxide 2,400 mg 08/29/23 17:11 Magnesium Hydroxide 2,400 Mg/10 Ml Oral.Susp PO Q6H PRN Dyspepsia Docusate Sodium 100 mg 08/30/23 09:00 09/01/23 08:13 Docusate Sodium 100 Mg Capsule PO 100 mg BID CECELIA Administration Sodium Chloride 1,000 mls @ 125 mls/hr 08/29/23 17:15 Sodium Chloride 0.9% 1,000 Ml IV .Q8H CECELIA Ibuprofen 800 mg 08/29/23 17:11 09/01/23 18:55 Ibuprofen 400 Mg Tablet PO 800 mg Q8H PRN Administration Pain Ondansetron HCl 4 mg 08/29/23 17:11 08/29/23 19:24 Ondansetron Pf 4 Mg/2 Ml Vial IV 4 mg Q6H PRN Administration Nausea And Vomiting Ondansetron HCl 4 mg 08/29/23 17:11 Ondansetron 4 Mg Rapdis Tablet PO Q6H PRN Nausea And Vomiting Oxycodone/Acetaminophen 1 tab 08/29/23 17:11 Oxycodone Hcl/Acetaminophen 5mg/325mg PO Q4H PRN Pain Scale 4-6 Oxycodone/Acetaminophen 2 tab 08/29/23 17:11 Oxycodone Hcl/Acetaminophen 5mg/325mg PO Q4H PRN Pain Scale 7-10 Promethazine HCl 12.5 mg 08/29/23 20:04 08/29/23 20:36 Promethazine Hcl 25 Mg Tablet PO 12.5 mg Q4H PRN Administration emesis Senna 17.2 mg 08/29/23 20:00 Sennosides 8.6 Mg Tablet PO QHS PRN Constipation Simethicone 80 mg 08/29/23 17:11 09/01/23 11:14 Simethicone 80 Mg Tab.Chew PO 80 mg QID PRN Administration Abdominal Distention Respiratory Pulse Oximetry 97 Oxygen Delivery Method Room Air Oxygen Delivery Method Room Air Oxygen Delivery Method Room Air Oxygen Delivery Method Room Air Oxygen Delivery Method Room Air Cardiology Heart Sounds Strong Bowels Date of Last Bowel Movement 08/31/23 Renal Bladder Pattern Continent Bladder Pattern Continent Catheter Date Urinary Catheter Removed 08/30/23 [Urethral] Date Urinary Catheter Removed 08/30/23 [Urethral] Time Urinary Catheter 11:45 Discontinued [Urethral] Time Urinary Catheter 11:45 Discontinued [Urethral]
[2023-09-01] MEDS: MEASLES,MUMPS,RUBELLA VACC/PF 0.5 ML VIAL SQ (21:26)
[2023-09-01 21:42] VITALS: BP 121/82; PULSE 87; RESP 16; TEMP 36.8; O2SAT 97
--- NOTE | 2023-10-02 | DS_ITS ---
DISCHARGE DATE: 10/02/2023 PRIMARY DIAGNOSES: 1. Intrauterine at 36 2/7 weeks. 2. Twin gestation. 3. Preeclampsia. PROCEDURE: section. HOSPITAL COURSE: As expected. Please see chart for full details. LABORATORY DATA: Please see chart. COMPLICATIONS: None. DISCHARGE CONDITION: Stable. CONSULTATION: Anesthesia. DISCHARGE INSTRUCTIONS: 1. Diet: Regular. 2. Medications: a. Percocet 5/325 one to two p.o. every 4-6 hours p.r.n. pain. b. Motrin 800 one p.o. every 8 hours p.r.n. pain. 3. Followup in one week. Restrictions: Pelvic rest for 6 weeks. No heavy lifting[address] May drive when pain free and no longer on narcotics. MTDD
== END 2023-09-01 21:45 | disposition home or self-care (01) | DRG 540 ==
PROVIDERS: Admitting Provider Obstetrics & Gynecology; Visit Provider Obstetrics & Gynecology
PROC: 10D00Z1 Extraction of Products of Conception, Low, Open Approach (ICD-10-PCS; CPT 59514; principal; 2023-08-29 16:30)
DX: O32.1XX1 Maternal care for breech presentation, fetus 1 (principal); O14.94 Unspecified pre-eclampsia, complicating childbirth; O30.043 Twin pregnancy, dichorionic/diamniotic, third trimester; Z3A.36 36 weeks gestation of pregnancy; Z37.2 Twins, both liveborn
CPT/HCPCS: 36415; 59050; 80307; 81001; 82565; 84450; 84460; 84520; 84550; 85025; 85384; 85610; 85730; 86850; 86900; 86901; 87086; 88307; 90471; 90707; 96374; 96375; 96376; J0690; J1100; J1885; J2274; J2405; J2590; Q0169

== ENCOUNTER 2024-04-09 08:27 | Outpatient (OUT) | payer OTHER, SELFPAY ==
--- OUTSIDE RECORDS SUMMARY | 2024-04-09 08:48 | XMS_ITS | CCD ---
Author Organization [facility] Care Team Providers Care Floor Steward/Stewardess Name Role Phone HOUSE, SUREKHA Unavailable Unavailable HOUSE, SUREKHA Unavailable Unavailable HOUSE, SUREKHA Unavailable Unavailable HOUSE, SUREKHA Unavailable Unavailable SHINE AUGUSTIN Unavailable Unavailable HOUSE, SUREKHA Unavailable Unavailable HOUSE, SUREKHA Unavailable Unavailable Song Jacinto MDpatty Primary Care Provider Song Jacinto MDpatty Primary Care Provider ZARINA MAYA Referring Unavailable OPHELIA, [facility] Primary Care Unavailable OPHELIA, [facility] Primary Care Unavailable ANAIS MONTIEL Attending Unavailable IAIN SHAH Attending Unavailable [facility], [facility] Unavailable MORA SKINNER Referring Unavailable [facility] Primary Care Unavailable SHAREE DANIELLE Attending Unavailable EVERARDO OLIVEIRA Attending Unavailable SHAREE DANIELLE Attending Unavailable EVERARDO OLIVEIRA Attending Unavailable SHAREE DANIELLE Attending Unavailable Song Jacinto MDpatty Primary Care Provider SONG JACINTOPATTY Primary Care Unavailable CHRISTEL FAY Attending Unavailable Medications Current Medications Medication Drug Class(es) Dates Sig (Normalized) Sig (Original) acetaZOLAMIDE 250 mg oral tablet (2 sources) Carbonic Anhydrase Inhibitor take 1 tablet by mouth twice daily acetaZOLAMIDE (DIAMOX) 250 MG tablet Take 250 mg by mouth 2 times daily 0 Active aspirin 81 mg delayed release oral tablet (1 source) Platelet Aggregation Inhibitor, Nonsteroidal Anti-inflammatory Drug Start: 04-10-2023 take 1 tablet by mouth in the morning aspirin 81 MG EC tablet Take 81 mg by mouth in the morning. 0 04/10/2023 Active fluticasone propionate 0.05 mg/actuat metered dose nasal spray (4 sources) Corticosteroid Start: 10-11-2021 take 2 spray(s) nasal route once daily fluticasone (FLONASE) 50 MCG/ACT nasal spray 2 sprays by Each Nostril route daily 48 g 1 10/11/2021 Active Izehlb-Tpddcxkvj-Sz ol-Fish Oil ( + COMPLETE MULTI PO) (1 source) take 1 tablet by mouth in the morning Egbyjl-Nysobxoul-B hol-Fish Oil ( + COMPLETE MULTI PO) Take 1 tablet by mouth in the morning. 0 Active Completed/Discontinued Medications Medication Drug Class(es) Dates [...] origin; Translations: [Pulsatile tinnitus, right ear] Episodic Unclassified (1 source) Cold Like Symptoms Onset: 11-07-2023 Unclassified (1 source) Fever, Sore Throat, Congestion Onset: 11-07-2023 Viral infection (1 source) Viral infection, unspecified; Translations: [Viral infection, unspecified] Onset: 11-07-2023 Episodic Past or Other Problems Problem Classification Problem Date Documented Da te Episodic/Chronic Malaise and fatigue (1 source) Other fatigue; Translations: [OTHER FATIGUE] Onset: 10-20-2017 Episodic Other lower respiratory disease (5 sources) Shortness of breath; Translations: [Dyspnea, unspecified] Onset: 10-18-2017 Episodic Other and delivery including normal (1 source) Twin ; Translations: [Twin , unspecified number of placenta and unspecified number of amniotic sacs, third trimester] Onset: 08-25-2023 Resolved: 09-20-2023 09-20-2023 Episodic Results Test Name Value Interpretation Reference Range Facility RAPID STREP SCR NURSINGon S. pyogenes Ag EIA Ql (Throat) Negative Normal NEG [facility] Comment on above: Performed By: #### 6 556-5 #### [facility] ([id number]) [address] [place] [address], [place] [address] SARS/FLU A+B/RSV by NAAT/Mol ecularon 11-07-2023 SARS/FLU A+B/RSV by NAAT/Molecular FLU A PCR Negative (qualifier value) FLU B PCR Negative (qualifier value) RSV by PCR Negative (qualifier value) SARS CoV 2 Not detected (qualifier value) NOTE The Xpert Xpress SARS-CoV-2/Flu/RSV Plus test is a rapid, multiplexed real-time RT-PCR test intended for the simultaneous qualitative detection and differentiation of SARS-CoV-2, influenza A, influenza B and respiratory syncytial virus (RSV) viral RNA from individuals suspected of respiratory viral infection consistent with COVID-19 by their healthcare provider. This test has not been validated in asymptomatic patients. The Xpert Xpress SARS-CoV-2 test is intended for use by qualified and trained operators who are performing tests using either [employer] or [facility] systems and is limited to laboratories that meet the CLIA requirements to perform high and moderate complexity tests. The Xpert Xpress SARS-CoV-2/Flu/RSV Plus is only for use under the Food and Drug Administration's Emergency Use Authorization. Results are for the simultaneous detection and differentiation of SARS-CoV-2, influenza A, influenza B and RSV nucleic acids in clinical specimens. SARS-CoV-2, influenza A, influenza B and RSV RNA identified by this test are generally detectable in upper respiratory samples during the acute phase of infection. Positive results are indicative of the presence of the identified virus, but do not rule out bacterial infection or co-infection with other pathogens not detected by this test. Clinical correlation with patient history and other diagnostic information is necessary to determine patient infection status. The agent detected may not be the definite cause of disease. Negative results do not preclude SARS-CoV-2, influenza A, influenza B and RSV infection and should not be used as the sole basis for treatment or other patient management decisions. Negative results must be combined with clinical observations, patient history and epidemiological information. An Invalid result may occur with specimen-associated inhibition unable to be resolved with specimen repeat. Fact Sheet for Healthcare Providers: https://www.fda.gov/ media/927378/downloa d Fact Sheet for Patients: https://www.fda.gov/ media/136282/downloa d Normal [facility] Comment on above: Performed By: #### C OVFLR #### [facility] ([id number]) [address] [place] [address], [place] [address] Basic Metabolic Panelon 09- Anion gap [Moles/Vol] 12 mmol/L 9 - 17 mmol/L [facility] Calcium [Mass/Vol] 9.3 mg/dL 8.6 - 10. 4 mg/dL [facility] Chloride [Moles/Vol] 109 mmol/L High 98 - 10 7 mmol/L [facility] CO2 [Moles/Vol] 16 mmol/L Low 20 - 31 mmol/L [facility] Creatinine [Mass/Vol] 0.76 mg/dL 0.5 - 0.9 mg/dL [facility] GFR >60 60 - PI NF mL/min [facility] GFR Non- >60 60 - PINF mL/min [facility] GFR/1.73 sq M.predicted MDRD (S/P/Bld) [Vol rate/Area] [facility] Comment on above: Average GFR for 20-2 9 years old: 116 mL/min/1.73sq m Chronic Kidney Disease: <60 mL/min/1.73sq m Kidney failure: <15 mL/min/1.73sq m eGFR calculated using average adult body mass. Additional eGFR calculator available at: http://www.KDW/multiple_crcl_2012.htm Glucose [Mass/Vol] 94 mg/dL 70 - 99 mg/dL [facility] Interpretation and review of laboratory results Abnormal [facility] Potassium [Moles/Vol] 4.0 mmol/L 3.7 - 5.3 mmol/L [facility] Sodium [Moles/Vol] 137 mmol/L 135 - 144 mmol/L [facility] Urea nitrogen (BldV) [Mass/Vol] 9 mg/dL 6 - 20 mg/dL [facility] Urea nitrogen/Creatinine (Bld) [Mass ratio] 12 9 - 20 [facility] Basic Metabolic Profon 04-23 (cont.) Normal [facility] Comment on above: Result Comment: Aver age GFR for 20-29 years old: 116 mL/min/1.73sq m Chronic Kidney Disease: <60 mL/min/1.73sq m Kidney failure: <15 mL/min/1.73sq m eGFR calculated using average adult body mass. Additional eGFR calculator available at: http://www.KDW/multiple_crcl_2011.htm Performed By: #### B JAZMIN, MG #### [facility] [address] [place] [address] Professional Application Designer: Ap Gutierrez MD Anion gap [Moles/Vol] 12 mmol/L Normal - [facility] Comment on above: Performed By: #### B JAZMIN MG #### [facility] [address] [place] [address] Professional Application Designer: Ap Gutierrez MD BUN/CRE Ratio 12 Normal 9-20 [facility] Comment on above: Performed By: #### B MP, MG #### [facility] [address] [place] [address] Professional Application Designer: Ap Gutierrez MD Calcium [Mass/Vol] 9.3 mg/dL Normal 8.6-10.4 [facility] Comment on above: Performed By: #### B MP, MG #### [facility] [address] [place] [address], [place] [address] Professional Application Designer: Ap Gutierrez MD Chloride [Moles/Vol] 109 mmol/L High 98-107 [facility] Comment on above: Performed By: #### B MP, MG #### [facility] [address] [place] [address] Professional Application Designer: Ap Gutierrez MD CO2 [Moles/Vol] 16 mmol/L Low 20-31 [facility] Comment on above: Performed By: #### B MP, MG #### [facility] [address] [place] [address], [place] [address] Professional Application Designer: Ap Gutierrez MD Creatinine [Mass/Vol] 0.76 mg/dL Normal 0.50-0.90 [facility] Comment on above: Performed By: #### B MP, MG #### [facility] [address] [place] [address], [place] [address] Professional Application Designer: Ap Gutierrez MD GFR, Amer >60 Normal >60 [facility] Comment on above: Performed By: #### B MP, MG #### [facility] [address] [place] [address] Professional Application Designer: Ap Gutierrez MD GFR,non Amer >60 Normal >60 [facility] Comment on above: Performed By: #### B MP, MG #### [facility] [address] [facility] [place] [address] Professional Application Designer: Ap Gutierrez MD Glucose [Mass/Vol] 94 mg/dL Normal 70-99 [facility] Comment on above: Performed By: #### B MP, MG #### [facility] [address] [place] [address] Professional Application Designer: Ap Gutierrez MD Potassium [Moles/Vol] 4.0 mmol/L Normal 3.7-5.3 [facility] Comment on above: Performed By: #### B MP, MG #### [facility] [address] [place] [address] Professional Application Designer: Ap Gutierrez MD Sodium [Moles/Vol] 137 mmol/L Normal 135-144 [facility] Comment on above: Performed By: #### B MP, MG #### [facility] [address] [place] [address] Professional Application Designer: Ap Gutierrez MD Urea nitrogen [Mass/Vol] 9 mg/dL Normal 6-20 [facility] Comment on above: Performed By: #### B MP, MG #### [facility] [address] [place] [address] Professional Application Designer: Ap Gutierrez MD Magnesiumon 04-23-2022 Magnesium [Mass/Vol] 2.2 mg/dL Normal 1.6-2.6 [facility] Comment on above: Performed By: #### B MP, MG #### [facility] [address] [place] [address] Professional Application Designer: Ap Gutierrez MD Magnesium [Mass/Vol] 2.2 mg/dL 1.6 - 2 .6 mg/dL [facility] No Panel Informationon 04-23 [facility] Microscopic Urinalysison Bacteria, UA 4+ Abnormal None [facility] Epithelial Cells UA 0 TO 4 [facility] Interpretation and review of laboratory results Abnormal [facility] Mucus, UA 2+ Abnormal None [facility] RBC, UA 0 TO 4 [facility] WBC, UA 0 TO 4 [facility] UA w/Reflex Cultureon 2021 Bilirubin, SemiQt,Ur Negative Normal [facility] Comment on above: Performed By: #### U AX UMICAO #### [facility] [address] [place] [address] Professional Application Designer: Ap Gutierrez MD Blood, Urine Negative Normal [facility] Comment on above: Performed By: #### U AX UMICAO #### [facility] [address] [place] [address] Professional Application Designer: Ap Gutierrez MD Glucose Ql (U) Negative Normal [facility] Comment on above: Performed By: #### U AX UMICAO #### [facility] [address] [place] [address] Professional Application Designer: Ap Gutierrez MD Ketones Ql (U) 2+ Abnormal [facility] Comment on above: Performed By: #### U AX, UMICAO #### [facility] [address] [place] [address] Professional Application Designer: Ap Gutierrez MD Leukocyte esterase Test strip Ql (U) Negative Normal [facility] Comment on above: Performed By: #### U AX, UMICAO #### [facility] [address] [place] [address] Professional Application Designer: Ap Gutierrez MD Nitrite,Ur Negative Normal [facility] Comment on above: Performed By: #### U AX, UMICAO #### [facility] [address] [place] [address] Professional Application Designer: Ap Gutierrez MD PH,Ur 6.0 Normal 5.0-6.0 [facility] Comment on above: Performed By: #### U AXTERIO #### [facility] [address] [place] [address] Professional Application Designer: Ap Gutierrez MD Protein Ql (U) Negative Normal NEG [facility] Comment on above: Performed By: #### U AXISIDRA #### [facility] [address] [place] [address] Professional Application Designer: Ap Gutierrez MD Spec. [place],Ur 1.025 Normal 1.010-1.025 [facility] Comment on above: Performed By: #### U ISIDRA HEARD #### [facility] [address] [place] [address] Professional Application Designer: Ap Gutierrez MD Urobilinogen,Ur Normal Normal NORM [facility] Comment on above: Performed By: #### U AXISIDRA #### [facility] [address] [place] [address] Professional Application Designer: Ap Gutierrez MD Urinalysis with Reflex to Cu ltureon 03-24-2022 Bilirubin Urine Negative [facility] Glucose, Ur Negative NEGATIVE [facility] Interpretation and review of laboratory results Abnormal [facility] Ketones Ql (U) 2+ Abnormal NEGATIVE [facility] Leukocyte esterase Test strip Ql (U) Negative NEGATIVE [facility] Nitrite, Urine Negative NEGATIVE [facility] pH, UA 6.0 5 - 6 [facility] Protein, UA Negative NEGATIVE [facility] Specific [place], UA 1.025 1.01 - 1.025 [facility] Urine Hgb Negative NEGATIVE [facility] Urobilinogen, Urine Normal Normal [facility] Urinalysis,Microon 2 Bacteria 4+ Abnormal NONE [facility] Comment on above: Performed By: #### U AXISIDRA #### [facility] [address] [place] [address] Professional Application Designer: Ap Gutierrez MD Epithelial cells LM Ql (Urine sed) 0 TO 4 Normal 0-5 [facility] Comment on above: Performed By: #### U REGLA HEARDICAO #### [facility] [address] [place] [address] Professional Application Designer: Ap Gutierrez MD Mucus Strands 2+ Abnormal NONE [facility] Comment on above: Performed By: #### U TERI HEARDO #### [facility] [address] [place] [address] Professional Application Designer: Ap Gutierrez MD Urine RBC's 0 TO 4 Normal 0-4 [facility] Comment on above: Performed By: #### U ISIDRA HEARD #### [facility] [address] [place] [address] Professional Application Designer: Ap Gutierrez MD Urine WBC's 0 TO 4 Normal 0-4 [facility] Comment on above: Performed By: #### U TERI HEARDO #### [facility] [address] [place] [address] Professional Application Designer: Ap Gutierrez MD CT IAC POSTERIOR FOSSA [...] MD 11/08/21 Final result Normal [facility] Unremarkable appearance of the temporal bones. [facility] RIS CONSOLIDATED EXAMINATION: CT OF THE INTERNAL [...] SINUSES: The visualized paranasal sinuses are clear. [facility] Lico Orosco MD - 11/08/2021 [...] IMPRESSION: Unremarkable appearance of the temporal bones. [employer] Phone: Radiology Study observation (narrative) [employer] Phone: CT IAC POSTERIOR FOSSA W CON TRASTOrdered By: Lico Orosco on 11-08-2021 [facility]: CT HEAD WO CONTRASTon 2021 CT [...] not a suspected or confirmed emergency medical condition->Emergency Medical Condition (MA) Is the patient ?->No [...] MD 11/04/21 Final result Normal [facility] HCG, ,Urineon 11-04 Beta HCG ( test) Ql (U) Negative Normal NEG [facility] Comment on above: Result Comment: Spec imens with hCG levels near the threshold of the test (25 mIU/mL) may give a negative or indeterminate result. In such cases, another test should be performed with a new specimen in 48-72 hours. If early is suspected clinically in this setting, correlation with quantitative serum b-hCG level is suggested. Performed By: #### U HCG #### [facility] [address] [place] [address] Professional Application Designer: Ap Gutierrez MD , Urineon Beta HCG ( test) Ql (U) Negative NEGATIVE [facility] Comment on above: Specimens with hCG l evels near the threshold of the test (25 mIU/mL) may give a negative or indeterminate result. In such cases, another test should be performed with a new specimen in 48-72 hours. If early is suspected clinically in this setting, correlation with quantitative serum b-hCG level is suggested. [facility] CBC AUTO DIFFon 10-18-2017 Basophils Auto #/vol (Bld) 0.0 103/ul Normal 0.0-0.1 [facility] Comment on above: Performed By: #### C BC ####[facility] [address] [place] [id number] Varsha Basophils/100 WBC Auto (Bld) 0.4 % Normal 0.2-2.0 [facility] Comment on above: Performed By: #### C BC ####[facility] [address] [place], [place] [phone] Varsha Eosinophils 0.1 103/ul Normal 0.0-0.[address] [facility] Comment on above: Performed By: #### C BC ####[facility] [address] [place], [place] [phone] Varsha Eosinophils/100 leukocytes 1.7 % Normal 0.9-7.0 [facility] Comment on above: Performed By: #### C BC ####[facility] [address] [place], [place] [phone] Varsha Erythrocyte distribution width Auto Ratio (RBC) 12.2 % Normal 11.0-15.0 [facility] Comment on above: Performed By: #### C BC ####[facility] [address] [place], [place] [phone] Varsha Erythrocytes (RBC) 4.20 106/ul Normal 4.20-5.40 [facility] Comment on above: Performed By: #### C BC ####[facility] [address] [place] [id number] Varsha Hematocrit (HCT) 38.7 % Normal 36.0-48.0 [facility] Comment on above: Performed By: #### C BC ####[facility] [address] [place], [place] [phone] Varsha Hemoglobin mass conc (Bld) 12.8 g/dL Normal 12.0-16.0 [facility] Comment on above: Performed By: #### C BC ####[facility] [address] [place] [address] Varsha IG # 0.01 10e3/ul Normal 0.00-0.03 [facility] Comment on above: Performed By: #### C BC ####[facility] [address] [place] [address] Varsha IG % 0.1 % Normal 0.0-0.5 [facility] Comment on above: Performed By: #### C BC ####[facility] [address] [place] [address] Varsha Lymphocytes 2.2 103/ul Normal 1.2-3.8 [facility] Comment on above: Performed By: #### C BC ####[facility] [address] [place] [address] Varsha Lymphocytes/100 leukocytes 27.6 % Normal 20.5-60.0 [facility] Comment on above: Performed By: #### C BC ####[facility] [address] [place] [address] Varsha MANUAL DIFF REQ NO Normal [facility] Comment on above: Performed By: #### C BC ####[facility] [address] [place], [place] [address]en MCH 30.5 pg Normal 26.7-34.0 [facility] Comment on above: Performed By: #### C BC ####[facility] [address] [place] [address] Varsha MCHC mass conc (RBC) 33.1 g/dL Normal 29.9-35.2 [facility] Comment on above: Performed By: #### C BC ####[facility] [address] [place] [address] Varsha MCV 92.1 fL Normal 81.0-99.0 [facility] Comment on above: Performed By: #### C BC ####[facility] [address] [place], [place] [address]Kkrjke Varsha Monocytes 0.6 103/ul Normal 0.3-0.8 [facility] Comment on above: Performed By: #### C BC ####[facility] [address] [place], [place] [address]Fylpyy Varsha Monocytes/100 leukocytes 7.3 % Normal 1.7-12.0 [facility] Comment on above: Performed By: #### C BC ####[facility] [address] [place], [place] [address]Ctcfpv Varsha Neutrophils 4.9 103/ul Normal 1.4-6.5 [facility] Comment on above: Performed By: #### C BC ####[facility] [address] [place] [address]Dkpsly Varsha Neutrophils/100 WBC Auto (Bld) 62.9 % Normal 43.0-75.0 [facility] Comment on above: Performed By: #### C BC ####[facility] [address] [place] [address]Pyvzlf Varsha Platelet mean volume (PMV) 10.0 fL Normal 9.5-13.5 [facility] Comment on above: Performed By: #### C BC ####[facility] [address] [place] [address]Vteprw Varsha Platelets 273 103/ul Normal 150-450 [facility] Comment on above: Performed By: #### C BC ####[facility] [address] [place], [place] [address]Xvcvaz Varsha WBC (Leukocytes) 7.8 103/ul Normal 4.0-11.0 [facility] Comment on above: Performed By: #### C BC ####[facility] [address] [place], [place] [address]Xmkqdn Varsha PROF 14(COMP METB)on 018 Alanine aminotransferase (ALT) 31 U/L Normal 9-52 [facility] Comment on above: Performed By: #### C MP ####[facility] [address] Varsha Albumin 4.2 g/dL Normal 3.5-5.0 [facility] Comment on above: Performed By: #### C MP ####[facility] [address] [place] [address] Varsha Albumin/Globulin Ratio 1.4 {ratio} Normal [facility] Comment on above: Performed By: #### C MP ####[facility] [address] [place], [place] [address]Ger[address] Varsha Alkaline phosphatase (ALP) 69 U/L Normal 38-126 [facility] Comment on above: Performed By: #### C MP ####[facility] [address] [place] [address] Varsha Anion gap 12.7 mmol/L Normal [facility] Comment on above: Performed By: #### C MP ####[facility] [address] [place] [address] Varsha Aspartate aminotransferase (AST) 28 U/L Normal 14-36 [facility] Comment on above: Performed By: #### C MP ####[facility] [facility] [id number] [place] [address] Varsha Bilirubin Ql (U) 0.4 mg/dL Normal 0.2-1.3 [facility] Comment on above: Performed By: #### C MP ####[facility] [address] [place] [address] Varsha BUN/Creatinine Ratio 22.4 mg/mg Normal [facility] Comment on above: Performed By: #### C MP ####[facility] [address] [place], [place] [address]Gerken Varsha Calcium 9.3 mg/dL Normal 8.4-10.2 [facility] Comment on above: Performed By: #### C MP ####[facility] [address] [place], [place] [address]Gerken Varsha Chloride 100 mmol/L Normal 98-107 [facility] Comment on above: Performed By: #### C MP ####[facility] [address] [address]Ger[address] Varsha CO2 27.0 mmol/L Normal 22.0-30.[address] [facility] Comment on above: Performed By: #### C MP ####[facility] [address] [id number] Varsha Creatinine 0.64 mg/dL Normal 0.52-1.04 [facility] Comment on above: Performed By: #### C MP ####[facility] [address] [id number] Varsha eGFR (non-black) mL/min/{1.73_m2} Normal >=[address] [facility] Comment on above: Performed By: #### C MP ####[facility] [address] [place], [place] [address]Gerken Varsha Globulin 2.9 g/dL Normal [facility] Comment on above: Performed By: #### C MP ####[facility] [address] [place], [place] [address]Gerken Varsha Glucose mass conc 88 mg/dL Normal 74-106 [facility] Comment on above: Performed By: #### C MP ####[facility] [address] [place] [address] Varsha Potassium molar conc 3.8 mmol/L Normal 3.4-5.[address] [facility] Comment on above: Performed By: #### C MP ####[facility] [address] [place], [place] [address]Gerken Varsha Protein 7.2 g/dL Normal 6.1-8.2 [facility] Comment on above: Performed By: #### C MP ####[facility] [address] [place] [id number] Varsha Sodium 136 mmol/L Critically low 137-145 [facility] Comment on above: Performed By: #### C MP ####[facility] [address] [place] [id number] Varsha Urea nitrogen 14.0 mg/dL Normal 6.4-19.3 The [facility] Comment on above: Performed By: #### C ####[facility] [address] [place], [place] [address]Bqylng Varsha XR SCOLIOSIS SERIES 2-3 Von 10-18-2017 XR SCOLIOSIS SERIES 2-3 [address] [place] [address] Patient: HOA BELLE Exam Date: 10/18/2017DOB: 2000 Gender:F : DR SUREKHA NICHOLSON Admission #: [id number] : Order #: [id number] HERE TO VIEW EXAM RADIOLOGY REPORT PROCEDURE: [...] Shine Augustin M.D. on 10/18/2017 at 17:[address] [facility] Vital Signs Date Time Vital Sign Value Performing Clinician Facility 09-20-2023 13:55-0500 Body mass index (BMI) [Ratio] 25.08 kg/m2 Sharee VELIZ Work Phone: [facility] 09-20-2023 13:55-0500 Body weight 72.63 kg Sharee VELIZ Work Phone: [facility] 09-20-2023 13:55-0500 Diastolic blood pressure 78 mm[Hg] Sharee VELIZ Work Phone: [facility] 09-20-2023 13:55-0500 Systolic blood pressure 122 mm[Hg] Sharee VELIZ Work Phone: [facility] 04-23-2022 14:51-0400 Body temperature 99.1 [degF] Anais Montiel MD Work Phone: [facility] 04-23-2022 14:45-0400 SaO2% (BldA) [Mass fraction] 99 % [facility]ais Montiel MD [facility] 04-23-2022 14:30-0400 Diastolic blood pressure 72 mm[Hg] Anais Montiel MD Work Phone: [facility] 04-23-2022 14:30-0400 Heart rate 57 /min Anais Montiel MD Work Phone: [facility] 04-23-2022 14:30-0400 Respiratory rate 16 /min Anais Montiel MD Work Phone[facility] 04-23-2022 14:30-0400 Systolic blood pressure 109 mm[Hg] Anais Montiel MD Work Phone: [facility] 04-23-2022 13:58-0400 Body height 167.6 cm Anais Montiel MD Work Phone[facility] 04-23-2022 13:58-0400 Body mass index (BMI) [Ratio] 24.95 kg/m2 Anais Montiel MD Work Phone: [facility] [employer] 04-23-2022 13:58-0400 Body weight 70.13 kg Anais Montiel MD Work Phone: [facility] [employer] 11-04-2021 11:01-0400 Body height 170.2 cm [facility] [employer] 11-04-2021 11:01-0400 Body mass index (BMI) [Ratio] 28.19 kg/m2 [facility] [employer] 11-04-2021 11:01-0400 Body temperature 97.9 [degF] [facility] [employer] 11-04-2021 11:01-0400 Body weight 81.65 kg [facility] [employer] 11-04-2021 11:01-0400 Diastolic blood pressure 96 mm[Hg] [facility] [employer] 11-04-2021 11:01-0400 Heart rate 86 /min [facility] [employer] 11-04-2021 11:01-0400 Respiratory rate 18 /min [facility] [employer] 11-04-2021 11:01-0400 SaO2% (BldA) [Mass fraction] 99 % [facility] 11-04-2021 11:01-0400 Systolic blood pressure 147 mm[Hg] [facility] Encounters Encounter Date Encounter Type Care Provider Facility Start: 11-07-2023 End: 11-07-2023 Emergency department patient visit [facility] Start: 09-20-2023 End: 09-20-2023 ambulatory SHAREE DANIELLE Not Available Start: 09-20-2023 End: 09-20-2023 Postop follow up visit related to original px Sharee VELIZ Work Phone: [facility] Comment on above: S/P section Start: 08-29-2023 End: 08-29-2023 ambulatory EVERARDO OLIVEIRA Not Available Start: 08-10-2023 End: 08-10-2023 ambulatory SHAREE DANIELLE Not Available Start: 07-27-2023 End: 07-27-2023 ambulatory SHAREE DANIELLE Not Available Start: 07-12-2023 End: 07-12-2023 ambulatory EVERARDO OLIVEIRA Not Available Start: 04-23-2022 End: 04-23-2022 [facility] Start: 04-23-2022 End: 04-23-2022 Emergency department patient visit Anais Montiel MD Work Phone: [facility] ED Comment on above: Dehydration (Primary Dx) Start: 03-24-2022 End: 03-25-2022 ambulatory MORA SKINNER [facility] Start: 03-24-2022 End: 03-24-2022 Subsequent hospital visit by physician Malou Jacinto MD Work Phone: Laboratory Comment on above: Painful urination Start: 11-08-2021 End: 11-11-2021 ambulatory ZARINA AMYA [facility] Start: 11-08-2021 End: 11-10-2021 Subsequent hospital visit by physician Ct Room [facility] CT Scan Comment on above: Pulsatile tinnitus, right ear Start: 11-04-2021 End: 11-04-2021 Emergency department patient visit Iain Shah DO [facility] ED Comment on above: Chronic nonintractab le headache, unspecified headache type (Primary Dx); Earache on right Start: 10-23-2017 Ambulatory [facility] Facility: H1 Start: 10-18-2017 End: 10-19-2017 Ambulatory [facility] Facility:H1 Procedures Date Procedure Procedure Detail Performing Clinician Start: 04-23-2022 Basic metabolic pane l calcium total Anais Montiel MD Work Phone: Start: 03-24-2022 Urinalysis microscop ic only Mora Skinner [employer] Work Phone: Start: 03-24-2022 Urnls dip stick/tabl et rgnt auto w/o microscopy Mora Skinner [employer] Work Phone: Start: 11-08-2021 Ct orbit sella/post fossa/ear w/contrast matrl Zarina Maya MD Work Phone: Start: 11-04-2021 Ct head/brain w/o contrast material Iain Shah DO Start: 11-04-2021 Urine test visual color cmprsn meths Iain Shah DO H/O: section S/P sectio n Sharee VELIZ Work Phone: Plan of Treatment Date Care Activity Detail Author Start: 10-11-2023 End: 10-11-2023 ambulatory 10/11/2023 10:50 AM EST Visit [facility] [address] [place] [address] Sharee Danielle PA [address] [place] [address] [facility] Start: 04-14-2023 Influenza vaccination Influenza Vaccine (#1) [facility] Start: 03-24-2023 Depression Screen Depression Screen [facility] Start: 08-17-2022 DTaP/Tdap/Td vaccine (6 - Td or Tdap) DTaP/Tdap/Td vaccine (6 - Td or Tdap) [facility] Start: 05-03-2022 End: 05-03-2022 Patient encounter procedure 05/03/2022 Office Visit Infectious Diseases Joseph Cotton MD [facility] [address] [address] [facility] Start: 04-14-2022 Influenza vaccination Flu vaccine (#1) [facility] Start: 11-23-2021 End: 11-23-2021 Patient encounter procedure 11/23/2021 Office Visit Otolaryngology Zarina Maya MD [address] [place] [address] [facility] A department of [facility] Start: 11-08-2021 End: 11-08-2021 Patient encounter procedure 11/08/2021 Appointment Radiology [facility] [place] CT Scan Start: 09-28-2021 COVID-19 Vaccine (3 - Booster for Pfizer series) COVID-19 Vaccine (3 - Booster for Pfizer series) [facility] Start: 04-14-2021 Influenza vaccination Flu vaccine (#1) [facility] Start: 2020 Screening for malignant neoplasm of cervix Pap smear [facility] Start: 2017 Hepatitis C screening Hepatitis C screen [facility] Start: 2015 Screening for Chlamydia trachomatis Chlamydia screen [facility] Start: 2014 HIV screening HIV screen [facility] Start: 2011 Depression Screen Depression Screen [facility] Start: 2010 HPV vaccine (1 - 2-dose series) HPV vaccine (1 - 2-dose series) [facility] Start: 1999 Hepatitis C screening Hepatitis C screen [facility] CT HEAD WO CONTRAST CT HEAD WO C ONTRAST Imaging STAT 11/04/2021 11:53 AM EDT [facility] Immunizations Immunization Date Immunization Notes Care Provider Fa librado 04-28-2021 Pfizer Purple Cap SARS-CoV-2 Vaccination Sharee VELIZ Work Phone: [facility] 04-07-2021 Pfizer Purple Cap SARS-CoV-2 Vaccination Sharee VELIZ Work Phone: [facility] 08-17-2012 influenza virus vacc ine, unspecified formulation Sharee VELIZ Work Phone: [facility] Payers Date Payer Category Payer Medicaid [employer] [place] [employer] [id number] 2020-Present [address] [place] [address] [id number] 1999 Unknown [id number] 1999 Unknown [id number] 1999 Unknown [id number] 1999 Unknown [id number] 1999 Unknown [id number] 1999 Unknown [id number] 1999 Unknown [id number] 1999 Unknown [id number] 1999 Unknown [id number] 1999 Unknown [id number] 1960 Self-pay [id number] 1960 Unknown [id number] Social History Date Type Detail Facility Start: 10-11-2021 End: 03-24-2022 Tobacco smoking status UTIS Never smoked tobacco [employer] Phone: Start: 10-11-2021 End: 03-24-2022 Tobacco use and exposure Smokeless tobacco non-user [employer] Phone: Start: 11-04-2021 End: 04-23-2022 Alcohol intake Lifetime non-drinker (finding) [employer] Phone: Start: 10-11-2021 History SDOH Alcohol Frequency 1 [employer] Phone: Start: 2000 Sex Assigned At Not on file [employer] Phone: Start: 10-25-2021 End: 04-23-2022 Exposure to SARS-CoV-2 (event) Not sure [employer] Phone: Tobacco smoking stat [facility] Tobacco smoking consumption unknown [facility] Gender identity Not on file [facility] History of Present illness Narrative 09-20-2023 KEREN Mccloud - 09/20/2023 1:40 PM EST Note Date & Type Note Facility 09-20-2023 History of Presen t illness Narrative Reason for Appointment: Patient ID: Hoa Belle is a 23 y.o. female who presents for Follow-up (C- section 08/29/2023) Patient presents today for Post Follow Up and 2 Week Post Op appointment. Current Medications: has a current medication list which includes the following prescription(s): aspirin and izhbjb-gjlgmkksy-qfll-fish oil. Medical History: Active Ambulatory Problems Diagnosis Date Noted No Active Ambulatory Problems Resolved Ambulatory Problems Diagnosis Date Noted Twin gestation in third trimester 08/25/2023 Past Medical History: Diagnosis Date Twin No family history on file. Social History Tobacco Use Smoking status: Not on file Smokeless tobacco: Not on file Substance Use Topics Alcohol use: Not on file Drug use: Not on file Past Surgical History: Procedure Laterality Date SECTION, LOW TRANSVERSE 08/29/2023 MR ANGIOGRAM HEAD W AND WO IV CONTRAST 03/24/2022 MR ANGIOGRAM HEAD W AND WO IV CONTRAST 03/24/2022 No Known Allergies Review of Systems: Review of Systems Constitutional: Negative. HENT: Negative. Eyes: Negative. Respiratory: Negative. Cardiovascular: Negative. Gastrointestinal: Negative. Genitourinary: Negative. Musculoskeletal: Negative. Skin: Negative. Neurological: Negative. All other systems reviewed and are negative. Hematological: Negative. Endocrine: Negative. Allergic/Immunologic: Negative. Objective Physical Exam Constitutional: Appearance: Normal appearance. She is normal weight. HENT: Head: Normocephalic. Cardiovascular: Rate and Rhythm: Normal rate. Pulses: Normal pulses. Pulmonary: Effort: Pulmonary effort is normal. Breath sounds: Normal breath sounds. Abdominal: Palpations: Abdomen is soft. Comments: Steristrips intact, pfannenstiel incision is clean and dry. Musculoskeletal: General: Normal range of motion. Neurological: General: No focal deficit present. Mental Status: She is alert and oriented to person, place, and time. Psychiatric: Mood and Affect: Mood normal. Behavior: Behavior normal. Thought Content: Thought content normal. Judgment: Judgment normal. Vitals and nursing note reviewed. Vitals: Estimated body mass index is 25.08 kg/m as calculated from the following: Height as of 02/24/23: 5' 7 . Weight as of this encounter: 160 lb 1.9 oz. BP: 122/78 Patient's last menstrual period was 12/18/2022 (exact date). Assessment/Plan Encounter Diagnosis Name Primary? S/P section Patient presents today for a two week postop section check. Patient is doing well with minor complaints of pain. Incision has been noted as healing well with no signs and symptoms of infection. Steri strips removed Follow Up: Patient is to return in 4 weeks for 6 week evaluation. Documented by KEREN Mccloud on behalf of: KEREN Mccloud documented in this encounter [facility] Discharge instructions 04-23-2022 Discharge InstructionsAttachments Note Date [...] a follow up appointment THANK YOU!!! From [facility] and [facility] On behalf of the Emergency Department staff at [facility], I would like to thank you for giving us the opportunity to address your health care needs and concerns. We hope that during your visit, our service was delivered in a professional and caring manner. Please keep [facility] in mind as we walk with you [...] how we did during your visit at [email or web address] barragan and let us know about your experience The following attachments cannot be sent through Care Everywhere.Dehydration (German)documented in this encounter [employer] Phone: Hospital Discharge instructions 11-01-2021 InstructionsAttachments Note Date & Type Note Facility 11-01-2021 Hospital Discharg e instructions Iain Shah DO - 11/04/2021 Follow-up with ENT Follow-up on Monday for your CAT scan Motrin or Tylenol for pain Return immediately if any worsening symptoms or any other concerns Tell us how we did visit: [email or web address] and let us know about your experience The following attachments cannot be sent through Care Everywhere.Earache: Adult (German)Headache (German)documented in this encounter [employer] Phone: Evaluation note Note Date & Type Note Facility Evaluation note Diagnosis Chronic nonintractable headache, unspecified headache type- Primary Earache on right Otalgia, unspecified documented in this encounter [employer] Phone: Evaluation note Note Date & Type Note Facility Evaluation note Diagnosis Pulsatile tinnitus, right ear documented in this encounter [employer] Phone: Evaluation note Note Date & Type Note Facility Evaluation note Diagnosis Painful urination Dysuria documented in this encounter [employer] Phone: Evaluation note Note Date & Type Note Facility Evaluation note Diagnosis Dehydration- Primary documented in this encounter [employer] Phone: Evaluation note Note Date & Type Note Facility Evaluation note Diagnosis S/P section Other postprocedural status documented in this encounter [facility] Summary Purpose Family History No Family History Records FoundNo Family History Records FoundNo Family History Records FoundNo Family History Records Found Advance Directives No Advanced Directives Records FoundNo Advanced Directives Records FoundNo Advanced Directives Records FoundNo Advanced Directives Records Found Reason for Referral Specialty Diagnoses / Procedures Referred By Contac t Referred To Contact Radiology Diagnoses Pulsatile tinnitus, right ear Procedures CT IAC POSTERIOR FOSSA W CONTRAST Zarina Maya MD [address] [place] [address] Referral ID Status Reason Start Date Expiration Date Visits Re quested Visits Authorized [id number] Closed 11/05/2021 12/05/2021 1 1 Additional Source Comments INFORMATION SOURCE (unrecogn ized section and content) DATE CREATED AUTHOR 02/02/2018 [facility] DATE CREATED AUTHOR AUTHOR'S ORGANIZ ATION 04/23/2022 [facility] DATE CREATED AUTHOR AUTHOR'S ORGANIZ ATION 09/21/2023 [facility] EPIC DATE CREATED AUTHOR AUTHOR'S ORGANIZ ATION 11/08/2023 [facility] Reason for Visit (unrecogniz ed section and content) Reason Comments Headache Specialty Diagnoses / Procedures Referred By Contac t Referred To Contact Radiology Diagnoses Pulsatile tinnitus, right ear Procedures CT IAC POSTERIOR FOSSA W CONTRAST Zarina Maya MD [address] [place] [address] Referral ID Status Reason Start Date Expiration Date Visits Re quested Visits Authorized [id number] Closed 11/05/2021 12/05/2021 1 1 Reason Comments Dehydration Feeling dehydrated Reason Comments Follow-up C- section Scheduled Active and Recently Administ ered Medications [...] Care Teams (unrecognized sec tion and content) Floor Steward/Stewardess Relationship Specialty Start Date End Date Malou Jacinto MD [address] [place] [id number] PCP - General Family Medicine 10/11/21 Floor Steward/Stewardess Relationship Specialty Start Date End Date Malou Jacinto MD [address] [place] [id number] PCP - General Family Medicine 10/11/21 Floor Steward/Stewardess Relationship Specialty Start Date End Date Malou Jacinto MD [address] [place] [id number] PCP - General Family Medicine 10/11/21 Floor Steward/Stewardess Relationship Specialty Start Date End Date Malou Jacinto MD [address] [place] [id number] PCP - General Family Medicine 10/11/21 Floor Steward/Stewardess Relationship Specialty Start Date End Date Malou Jacinto MD [address] [place], [place] [id number] PCP - General Internal Medicine 02/01/23 FOR RECORDS PERTAINING TO PATIENTS WHO ARE [...] BE BASED ON THE PRIMARY CLINICAL RECORDS. [employer] [facility]. provides no warranty or guarantee of the accuracy or completeness of information in this document.
--- NOTE | 2024-04-09 13:41 | PC.NURSE ---
José Antonio Camara and 7 mo twin sons Osmani and Marlo arrive for /feeding support. Twins delivered 08/31/2023, noted to have lip and tongue ties in both. Osmani had several problems with weight gain, feeding and is currently taking Nuetramagin formula as this is only feeding would retain. Mom currently mixing breast milk into his bottles and baby tolerates well. Marlo has been receiving pumped breast milk for all feeds since delivery. . Both babies started pureed foods last week and are tolerating well. Mom and dad each bottle feed a baby, and both Osmani and Marlo have strong suck, good seal on bottle nipple, using Dr Brown bottles without inserts and size 2 nipples. Both given 8 oz bottles, no leaking with good seals on bottle , able to control feed themselves, as pace feed themselves by removing bottle as needed. No regurg, and parents state spitting up almost gone . Infants are doing well, thriving. Parents given food chart of what to feed infants at different ages. Mom verypleased with babies progress and joyful in motherhood. Dad very interactive with boys and helpful. Mom pumps throughout the day, obtaining 6-8 oz per breast for feedings. Family leaves ambulatory.
== END 2024-04-09 13:58 | disposition home or self-care (01) ==
PROVIDERS: Visit Provider Obstetrics & Gynecology
DX: Z39.1 Encounter for care and examination of lactating mother (principal)

== ENCOUNTER 2024-05-28 19:10 | Outpatient (REF) | payer OTHER, SELFPAY ==
--- OUTSIDE RECORDS SUMMARY | 2024-05-28 19:15 | XMS_ITS | CCD ---
Author Organization [facility] Care Team Providers Care Dog Food Dough Mixer Name Role Phone HOUSE, SUREKHA Unavailable Unavailable HOUSE, SUREKHA Unavailable Unavailable HOUSE, SUREKHA Unavailable Unavailable HOUSE, SUREKHA Unavailable Unavailable SHINE AUGUSTIN Unavailable Unavailable HOUSE, SUREKHA Unavailable Unavailable HOUSE, SUREKHA Unavailable Unavailable Song Jacinto MDpatty Primary Care Provider Song Jacinto MDpatty Primary Care Provider ZARINA MAYA Referring Unavailable OPHELIA, [facility] Primary Care Unavailable OPHELIA, [facility] Primary Care Unavailable ANAIS MONTIEL Attending Unavailable IAIN SHAH [facility]ending [facility] Unavailable MORA SKINNER Referring Unavailable [facility] Primary Care Unavailable SHAREE DANIELLE [...] route daily 48 g 1 10/11/2021 Active Reebwc-Jofdcbcju-Nn ol-Fish Oil ( + COMPLETE MULTI PO) (1 source) take 1 tablet by mouth in the morning Xobfnc-Wyhmaoivu-J hol-Fish Oil ( + COMPLETE MULTI PO) [...] Ag EIA Ql (Throat) Negative Normal NEG [facility] Comment on above: Performed By: #### 6 556-5 #### [facility] ([id number]) [address] [place] [address], [place] [address] SARS/FLU A+B/RSV by NAAT/Mol ecularon 11-07-2023 SARS/FLU [...] operators who are performing tests using either Platfora or ViViFi systems and is limited to laboratories that [...] repeat. Fact Sheet for Healthcare Providers: https://www.fda.gov/ media/020948/downloa d Fact Sheet for Patients: https://www.fda.gov/ media/224060/downloa d [facility] Comment on above: Performed By: #### C OVFLR #### [facility] ([id number]) [address] [place] [address], [place] [address] Basic Metabolic Panelon 09- Anion gap [Moles/Vol] 12 mmol/L 9 - 17 mmol/L [employer] Calcium [Mass/Vol] 9.3 mg/dL 8.6 - 10. 4 mg/dL [facility] Chloride [Moles/Vol] 109 mmol/L High 98 - 10 7 mmol/L [employer] CO2 [Moles/Vol] 16 mmol/L Low 20 - 31 mmol/L [facility] Creatinine [Mass/Vol] 0.76 mg/dL 0.5 - 0.9 mg/dL [employer] GFR >60 60 - PI NF mL/min [facility] GFR Non- >60 60 - PINF mL/min [facility] GFR/1.73 sq M.predicted MDRD (S/P/Bld) [Vol rate/Area] [facility] Comment on above: Average GFR for 20-2 9 years old: 116 mL/min/1.73sq m Chronic Kidney Disease: <60 mL/min/1.73sq m Kidney failure: <15 mL/min/1.73sq m eGFR calculated using average adult body mass. Additional eGFR calculator available at: http://www.Nommunity/multiple_crcl_2012.htm Glucose [Mass/Vol] 94 mg/dL 70 - 99 mg/dL [facility] Interpretation and review of laboratory results Abnormal [facility] Potassium [Moles/Vol] 4.0 mmol/L 3.7 - 5.3 mmol/L [facility] Sodium [Moles/Vol] 137 mmol/L 135 - 144 mmol/L [facility] Urea nitrogen (BldV) [Mass/Vol] 9 mg/dL 6 - 20 mg/dL [facility] Urea nitrogen/Creatinine (Bld) [Mass ratio] 12 9 - 20 [facility] Basic Metabolic Profon 04-23 (cont.) Normal [facility] Comment on above: Result Comment: Aver age GFR for 20-29 years old: 116 mL/min/1.73sq m Chronic Kidney Disease: <60 mL/min/1.73sq m Kidney failure: <15 mL/min/1.73sq m eGFR calculated using average adult body mass. Additional eGFR calculator available at: http://www.Nommunity/multiple_crcl_2011.htm Performed By: #### B JAZMIN, MG #### [facility] [address] [place] [address] Centrifugal Spinner: Ap Gutierrez MD Anion gap [Moles/Vol] 12 mmol/L Normal - [facility] Comment on above: Performed By: #### B JAZMIN MG #### [facility] [address] [place] [address] Centrifugal Spinner: Ap Gutierrez MD BUN/CRE Ratio 12 Normal 9-20 [facility] Comment on above: Performed By: #### B MP, MG #### [facility] [address] [place] [address] Centrifugal Spinner: Ap Gutierrez MD Calcium [Mass/Vol] 9.3 mg/dL Normal 8.6-10.4 [facility] Comment on above: Performed By: #### B MP, MG #### [facility] [address] [place] [address], [place] [address] Centrifugal Spinner: Ap Gutierrez MD Chloride [Moles/Vol] 109 mmol/L High 98-107 [facility] Comment on above: Performed By: #### B MP, MG #### [facility] [address] [place] [address] Centrifugal Spinner: Ap Gutierrez MD CO2 [Moles/Vol] 16 mmol/L Low 20-31 [facility] Comment on above: Performed By: #### B MP, MG #### [facility] [address] [place] [address], [place] [address] Centrifugal Spinner: Ap Gutierrez MD Creatinine [Mass/Vol] 0.76 mg/dL Normal 0.50-0.90 [facility] Comment on above: Performed By: #### B MP, MG #### [facility] [address] [place] [address], [place] [address] Centrifugal Spinner: Ap Gutierrez MD GFR, Amer >60 Normal >60 [facility] Comment on above: Performed By: #### B MP, MG #### [facility] [address] [place] [address] Centrifugal Spinner: Ap Gutierrez MD GFR,non Amer >60 Normal >60 [facility] Comment on above: Performed By: #### B MP, MG #### [facility] [address] [facility] [place] [address] Centrifugal Spinner: pA Gutierrez MD Glucose [Mass/Vol] 94 mg/dL Normal 70-99 [facility] Comment on above: Performed By: #### B MP, MG #### [facility] [address] [place] [address] Centrifugal Spinner: Ap Gutierrez MD Potassium [Moles/Vol] 4.0 mmol/L Normal 3.7-5.3 [facility] Comment on above: Performed By: #### B MP, MG #### [facility] [address] [place] [address] Centrifugal Spinner: Ap Gutierrez MD Sodium [Moles/Vol] 137 mmol/L Normal 135-144 [facility] Comment on above: Performed By: #### B MP, MG #### [facility] [address] [place] [address] Centrifugal Spinner: Ap Gutierrez MD Urea nitrogen [Mass/Vol] 9 mg/dL Normal 6-20 [facility] Comment on above: Performed By: #### B MP, MG #### [facility] [address] [place] [address] Centrifugal Spinner: Ap Gutierrez MD Magnesiumon 04-23-2022 Magnesium [Mass/Vol] 2.2 mg/dL Normal 1.6-2.6 [facility] Comment on above: Performed By: #### B MP, MG #### [facility] [address] [place] [address] Centrifugal Spinner: Ap Gutierrez MD Magnesium [Mass/Vol] 2.2 mg/dL 1.6 - 2 .6 mg/dL [facility] No Panel Informationon 04-23 [facility] Microscopic Urinalysison Bacteria, UA 4+ Abnormal None [facility] Epithelial Cells UA 0 TO 4 [facility] Interpretation and review of laboratory results Abnormal [facility] Mucus, UA 2+ Abnormal None [facility] RBC, UA 0 TO 4 [facility] WBC, UA 0 TO 4 [facility] UA w/Reflex Cultureon 2021 Bilirubin, SemiQt,Ur Negative Normal [facility] Comment on above: Performed By: #### U AX UMICAO #### [facility] [address] [place] [address] Centrifugal Spinner: Ap Gutierrez MD Blood, Urine Negative Normal [facility] Comment on above: Performed By: #### U AX UMICAO #### [facility] [address] [place] [address] Centrifugal Spinner: Ap Gutierrez MD Glucose Ql (U) Negative Normal [facility] Comment on above: Performed By: #### U AX UMICAO #### [facility] [address] [place] [address] Centrifugal Spinner: Ap Gutierrez MD Ketones Ql (U) 2+ Abnormal [facility] Comment on above: Performed By: #### U AX, UMICAO #### [facility] [address] [place] [address] Centrifugal Spinner: Ap Gutierrez MD Leukocyte esterase Test strip Ql (U) Negative Normal [facility] Comment on above: Performed By: #### U AX, UMICAO #### [facility] [address] [place] [address] Centrifugal Spinner: Ap Gutierrez MD Nitrite,Ur Negative Normal [facility] Comment on above: Performed By: #### U AX, UMICAO #### [facility] [address] [place] [address] Centrifugal Spinner: Ap Gutierrez MD PH,Ur 6.0 Normal 5.0-6.0 [facility] Comment on above: Performed By: #### U AXTERIO #### [facility] [address] [place] [address] Centrifugal Spinner: Ap Gutierrez MD Protein Ql (U) Negative Normal NEG [facility] Comment on above: Performed By: #### U AXISIDRA #### [facility] [address] [place] [address] Centrifugal Spinner: Ap Gutierrez MD Spec. Perry,Ur 1.025 Normal 1.010-1.025 [facility] Comment on above: Performed By: #### U ISIDRA HEARD #### [facility] [address] [place] [address] Centrifugal Spinner: Ap Gutierrez MD Urobilinogen,Ur Normal Normal NORM [facility] Comment on above: Performed By: #### U AXISIDRA #### [facility] [address] [place] [address] Centrifugal Spinner: Ap Gutierrez MD Urinalysis with Reflex to Cu ltureon 03-24-2022 Bilirubin Urine Negative NEGATIVE [facility] Glucose, Ur Negative NEGATIVE [facility] Interpretation and review of laboratory results Abnormal [facility] Ketones Ql (U) 2+ Abnormal NEGATIVE [facility] Leukocyte esterase Test strip Ql (U) Negative NEGATIVE [facility] Nitrite, Urine Negative NEGATIVE [facility] pH, UA 6.0 5 - 6 [facility] Protein, UA Negative NEGATIVE [facility] Specific Perry, UA 1.025 1.01 - 1.025 [facility] Urine Hgb Negative NEGATIVE [facility] Urobilinogen, Urine Normal Normal [facility] Urinalysis,Microon 2 Bacteria 4+ Abnormal NONE [facility] Comment on above: Performed By: #### U AXISIDRA #### [facility] [address] [place] [address] Centrifugal Spinner: Ap Gutierrez MD Epithelial cells LM Ql (Urine sed) 0 TO 4 Normal 0-5 [facility] Comment on above: Performed By: #### U REGLA HEARDICAO #### [facility] [address] [place] [address] Centrifugal Spinner: Ap Gutierrez MD Mucus Strands 2+ Abnormal NONE [facility] Comment on above: Performed By: #### U TERI HEARDO #### [facility] [address] [place] [address] Centrifugal Spinner: Ap Gutierrez MD Urine RBC's 0 TO 4 Normal 0-4 [facility] Comment on above: Performed By: #### U ISIDRA HEARD #### [facility] [address] [place] [address] Centrifugal Spinner: Ap Gutierrez MD Urine WBC's 0 TO 4 Normal 0-4 [facility] Comment on above: Performed By: #### U TERI HEARDO #### [facility] [address] [place] [address] Centrifugal Spinner: Ap Gutierrez MD CT IAC POSTERIOR FOSSA [...] Lico Orosco MD 11/08/21 Final result Normal [facility] Unremarkable appearance of the temporal bones. [facility] RIS CONSOLIDATED EXAMINATION: CT OF THE [...] SINUSES: The visualized paranasal sinuses are clear. [facility] RIS CONSOLIDATED Lico Orosco MD - [...] IMPRESSION: Unremarkable appearance of the temporal bones. [facility] Phone: Radiology Study observation (narrative) [facility] Phone: CT IAC POSTERIOR FOSSA W CON TRASTOrdered By: Lico Orosco on 11-08-2021 [facility]: CT HEAD WO CONTRASTon 2021 [...] Raj Araiza MD 11/04/21 Final result Normal [facility] HCG, ,Urineon 11-04 Beta HCG ( test) Ql (U) Negative Normal NEG [facility] Comment on above: Result Comment: Spec imens with hCG levels near the threshold of the test (25 mIU/mL) may give a negative or indeterminate result. In such cases, another test should be performed with a new specimen in 48-72 hours. If early is suspected clinically in this setting, correlation with quantitative serum b-hCG level is suggested. Performed By: #### U HCG #### [facility] [address] [place] [address] Centrifugal Spinner: Ap Gutierrez MD , Urineon Beta HCG ( test) Ql (U) Negative NEGATIVE [facility] Comment on above: Specimens with hCG l evels near the threshold of the test (25 mIU/mL) may give a negative or indeterminate result. In such cases, another test should be performed with a new specimen in 48-72 hours. If early is suspected clinically in this setting, correlation with quantitative serum b-hCG level is suggested. [facility] CBC AUTO DIFFon 10-18-2017 Basophils Auto #/vol (Bld) 0.0 103/ul Normal 0.0-0.1 [facility] Comment on above: Performed By: #### C BC ####[facility] [address] [place] [id number] Varsha Basophils/100 WBC Auto (Bld) 0.4 % Normal 0.2-2.0 [facility] Comment on above: Performed By: #### C BC ####[facility] [address] [place], [place] [address]Gerken Varsha Eosinophils 0.1 103/ul Normal 0.0-0.7 [facility] Comment on above: Performed By: #### C BC ####[facility] [address] [place], [place] [address]Gerken Varsha Eosinophils/100 leukocytes 1.7 % Normal 0.9-7.0 [facility] Comment on above: Performed By: #### C BC ####[facility] [address] [place], [place] [address]Gerken Varsha Erythrocyte distribution width Auto Ratio (RBC) 12.2 % Normal 11.0-15.0 [facility] Comment on above: Performed By: #### C BC ####[facility] [address] [place], [place] [address]Gerken Varsha Erythrocytes (RBC) 4.20 106/ul Normal 4.20-5.40 [facility] Comment on above: Performed By: #### C BC ####[facility] [address] [place] [id number] Varsha Hematocrit (HCT) 38.7 % Normal 36.0-48.0 [facility] Comment on above: Performed By: #### C BC ####[facility] [address] [place], [place] [address]Gerken Varsha Hemoglobin mass conc (Bld) 12.8 g/dL Normal 12.0-16.0 [facility] Comment on above: Performed By: #### C BC ####[facility] [address] [place] [address] Varsha IG # 0.01 10e3/ul Normal 0.00-0.03 [facility] Comment on above: Performed By: #### C BC ####[facility] [address] [place] [address] Varsha IG % 0.1 % Normal 0.0-0.5 [facility] Comment on above: Performed By: #### C BC ####[facility] [address] [place] [address] Varsha Lymphocytes 2.2 103/ul Normal 1.2-3.8 [facility] Comment on above: Performed By: #### C BC ####[facility] [address] [place] [address] Varsha Lymphocytes/100 leukocytes 27.6 % Normal 20.5-60.0 [facility] Comment on above: Performed By: #### C BC ####[facility] [address] [place] [address] Varsha MANUAL DIFF REQ NO Normal [facility] Comment on above: Performed By: #### C BC ####[facility] [address] [place], [place] [address]en MCH 30.5 pg Normal 26.7-34.0 [facility] Comment on above: Performed By: #### C BC ####[facility] [address] [place] [address] Varsha MCHC mass conc (RBC) 33.1 g/dL Normal 29.9-35.2 [facility] Comment on above: Performed By: #### C BC ####[facility] [address] [place] [address] Varsha MCV 92.1 fL Normal 81.0-99.0 [facility] Comment on above: Performed By: #### C BC ####[facility] [address] [place], [place] [address]Abppzg Varsha Monocytes 0.6 103/ul Normal 0.3-0.8 [facility] Comment on above: Performed By: #### C BC ####[facility] [address] [place], [place] [address]Rexgpd Varsha Monocytes/100 leukocytes 7.3 % Normal 1.7-12.0 [facility] Comment on above: Performed By: #### C BC ####[facility] [address] [place], [place] [address]Seovfp Varsha Neutrophils 4.9 103/ul Normal 1.4-6.5 [facility] Comment on above: Performed By: #### C BC ####[facility] [address] [place] [address]Dzxgpy Varsha Neutrophils/100 WBC Auto (Bld) 62.9 % Normal 43.0-75.0 [facility] Comment on above: Performed By: #### C BC ####[facility] [address] [place] [address]Sjrecd Varsha Platelet mean volume (PMV) 10.0 fL Normal 9.5-13.5 [facility] Comment on above: Performed By: #### C BC ####[facility] [address] [place] [address]Jylptf Varsha Platelets 273 103/ul Normal 150-450 [facility] Comment on above: Performed By: #### C BC ####[facility] [address] [place], [place] [address]Bpdpru Varsha WBC (Leukocytes) 7.8 103/ul Normal 4.0-11.0 [facility] Comment on above: Performed By: #### C BC ####[facility] [address] [place], [place] [address]Jjeoic Varsha PROF 14(COMP METB)on 018 Alanine aminotransferase (ALT) 31 U/L Normal 9-52 [facility] Comment on above: Performed By: #### C MP ####[facility] V[address] Varsha Albumin 4.2 g/dL Normal 3.5-5.0 [facility] Comment on above: Performed By: #### C MP ####[facility] [address] [place] [address] Varsha Albumin/Globulin Ratio 1.4 {ratio} Normal [facility] Comment on above: Performed By: #### C MP ####[facility] [address] [place], [place] [address]Gerken Varsha Alkaline phosphatase (ALP) 69 U/L Normal 38-126 [facility] Comment on above: Performed By: #### C MP ####[facility] [address] [place] [address] Varsha Anion gap 12.7 mmol/L Normal [facility] Comment on above: Performed By: #### C MP ####[facility] [address] [place] [address] Varsha Aspartate aminotransferase (AST) 28 U/L Normal 14-36 [facility] Comment on above: Performed By: #### C MP ####[facility] [address] [place] [address] Varsha Bilirubin Ql (U) 0.4 mg/dL Normal 0.2-1.3 [facility] Comment on above: Performed By: #### C MP ####[facility] [address] [place] [address] Varsha BUN/Creatinine Ratio 22.4 mg/mg Normal [facility] Comment on above: Performed By: #### C MP ####[facility] [address] [place], [place] [address]Gerken Varsha Calcium 9.3 mg/dL Normal 8.4-10.2 [facility] Comment on above: Performed By: #### C MP ####[facility] [address] [place], [place] [address]Gerken Varsha Chloride 100 mmol/L Normal 98-107 [facility] Comment on above: Performed By: #### C MP ####[facility] [address] [place] [address]Gerken Varsha CO2 27.0 mmol/L Normal 22.0-30.0 [facility] Comment on above: Performed By: #### C MP ####[facility] [address] [place] [phone] Varsha Creatinine 0.64 mg/dL Normal 0.52-1.04 [facility] Comment on above: Performed By: #### C MP ####[facility] [address] [place] [phone] Varsha eGFR (non-black) mL/min/{1.73_m2} Normal >=60 Th [facility] Comment on above: Performed By: #### C MP ####[facility] [address] [place], [place] [address]Gerken Varsha Globulin 2.9 g/dL Normal [facility] Comment on above: Performed By: #### C MP ####[facility] [address] [place], [place] [address]Gerken Varsha Glucose mass conc 88 mg/dL Normal 74-106 [facility] Comment on above: Performed By: #### C MP ####[facility] [address] [place] [address] Varsha Potassium molar conc 3.8 mmol/L Normal 3.4-5.0 [facility] Comment on above: Performed By: #### C MP ####[facility] [address] [place], [place] [address]Gerken Varsha Protein 7.2 g/dL Normal 6.1-8.2 [facility] Comment on above: Performed By: #### C MP ####[facility] [address] [place] [address]Gerken Varsha Sodium 136 mmol/L Critically low 137-145 [facility] Comment on above: Performed By: #### C MP ####[facility] [address] [place] [phone] Varsha Urea nitrogen 14.0 mg/dL Normal 6.4-19.3 [facility] Comment on above: Performed By: #### C ####[facility] [address] [place], [place] [address]Gebqab Varsha XR SCOLIOSIS SERIES 2-3 Von 10-18-2017 XR SCOLIOSIS SERIES 2-3 [address] [place] [address] Patient: HOA BELLE Exam Date: 10/18/2017DOB: 2000 Gender:F : DR SUREKHA NICHOLSON Admission #: [id number] : Order #: [id number] HERE TO VIEW EXAM RADIOLOGY REPORT PROCEDURE: [...] Augustin M.D. on 10/18/2017 at 17:16 Normal [facility] Vital Signs Date Time Vital Sign Value Performing Clinician Facility 09-20-2023 13:55-0500 Body mass index (BMI) [Ratio] 25.08 kg/m2 Sharee VELIZ Work Phone: [facility] 09-20-2023 13:55-0500 Body weight 72.63 kg Sharee VELIZ Work Phone: [facility] 09-20-2023 13:55-0500 Diastolic blood pressure 78 mm[Hg] Sharee VELIZ Work Phone: [facility] 09-20-2023 13:55-0500 Systolic blood pressure 122 mm[Hg] Sharee VELIZ Work Phone: [facility] 04-23-2022 14:51-0400 Body temperature 99.1 [degF] Anais Montiel MD Work Phone: [facility] 04-23-2022 14:45-0400 SaO2% (BldA) [Mass fraction] 99 % Anais Montiel MD [facility] 04-23-2022 14:30-0400 Diastolic blood pressure 72 mm[Hg] Anais Montiel MD Work [facility] 04-23-2022 14:30-0400 Heart rate 57 /min Anais Montiel MD Work Phone: [facility] 04-23-2022 14:30-0400 Respiratory rate 16 /min Anais Montiel MD Work Phone: [facility] 04-23-2022 14:30-0400 Systolic blood pressure 109 mm[Hg] Anais Montiel MD Work Phone: [facility] 04-23-2022 13:58-0400 Body height 167.6 cm Anais Montiel MD Work Phone: [facility] 04-23-2022 13:58-0400 Body mass index (BMI) [Ratio] 24.95 kg/m2 Anais Montiel MD Work Phone: [facility] [email or web address] 04-23-2022 13:58-0400 Body weight 70.13 kg Anais Montiel MD Work Phone: [facility] [employer] 11-04-2021 11:01-0400 Body height 170.2 cm [facility] [employer] 11-04-2021 11:01-0400 Body mass index (BMI) [Ratio] 28.19 kg/m2 [facility] [employer] 11-04-2021 11:01-0400 Body temperature 97.9 [degF] [facility] 11-04-2021 11:01-0400 Body weight 81.65 kg [facility] [employer] 11-04-2021 11:01-0400 Diastolic blood pressure 96 mm[Hg] [facility] 11-04-2021 11:01-0400 Heart rate 86 /min [facility] 11-04-2021 11:01-0400 Respiratory rate 18 /min [facility] 11-04-2021 11:01-0400 SaO2% (BldA) [Mass fraction] 99 % [facility] 11-04-2021 11:01-0400 Systolic blood pressure 147 mm[Hg] [facility] Encounters Encounter Date Encounter Type Care Provider Facility Start: 11-07-2023 End: 11-07-2023 Emergency department patient visit [facility] Start: 09-20-2023 End: 09-20-2023 ambulatory SHAREE [...] 04-23-2022 End: 04-23-2022 [facility] Start: 04-23-2022 End: 04-23-2022 Emergency department patient visit Anais Montiel MD Work Phone: [facility] ED Comment on above: Dehydration (Primary Dx) Start: 03-24-2022 End: 03-25-2022 ambulatory MORA SKINNER [facility] Start: 03-24-2022 End: 03-24-2022 Subsequent hospital visit by physician Malou Jacinto MD Work Phone: Laboratory Comment on above: Painful urination Start: 11-08-2021 End: 11-11-2021 ambulatory ZARINA MAYA [facility] Start: 11-08-2021 End: 11-10-2021 Subsequent hospital visit by physician Ct Room [facility] CT Scan Comment on above: Pulsatile tinnitus, right ear Start: 11-04-2021 End: 11-04-2021 Emergency department patient visit Iain Shah DO [facility] ED Comment on above: Chronic nonintractab le headache, unspecified headache type (Primary Dx); Earache on right Start: 10-23-2017 Ambulatory [facility] Facility: H1 Start: 10-18-2017 End: 10-19-2017 Ambulatory [facility] Facility:H1 Procedures Date Procedure Procedure Detail Performing Clinician Start: 04-23-2022 Basic metabolic pane l calcium total Anais Montiel MD Work Phone: Start: 03-24-2022 Urinalysis microscop ic only Mora Skinner SOFTWARE INSTALLER - PIPELINE TECHNICIAN Work Phone: Start: 03-24-2022 Urnls dip stick/tabl et rgnt auto w/o microscopy Mora Skinner SOFTWARE INSTALLER - PIPELINE TECHNICIAN Work Phone: Start: 11-08-2021 Ct orbit sella/post fossa/ear w/contrast matrl Zarina Maya MD Work Phone: Start: 11-04-2021 Ct head/brain w/o contrast material Iain Shah DO Start: 11-04-2021 Urine test visual color cmprsn meths Iain Shah DO H/O: section S/P sectio n Sharee VELIZ Work Phone: Plan of Treatment Date Care Activity Detail Author Start: 10-11-2023 End: 10-11-2023 ambulatory 10/11/2023 10:50 AM EST Visit [facility] [address] [place] [address] Sharee Danielle PA [address] [place] [address] [facility] Start: 04-14-2023 Influenza vaccination Influenza Vaccine (#1) [facility] Start: 03-24-2023 Depression Screen Depression Screen [facility] Start: 08-17-2022 DTaP/Tdap/Td vaccine (6 - Td or Tdap) DTaP/Tdap/Td vaccine (6 - Td or Tdap) [facility] Start: 05-03-2022 End: 05-03-2022 Patient encounter procedure 05/03/2022 Office Visit Infectious Diseases Joseph Cotton MD [facility] [address] [address] [facility] Start: 04-14-2022 Influenza vaccination Flu vaccine (#1) [facility] Start: 11-23-2021 End: 11-23-2021 Patient encounter procedure 11/23/2021 Office Visit Otolaryngology Zarina Maya MD [address] [place] [address] [facility] A department of [facility] Start: 11-08-2021 End: 11-08-2021 Patient encounter procedure 11/08/2021 Appointment Radiology [facility] Scan Start: 09-28-2021 COVID-19 Vaccine (3 - Booster for Pfizer series) COVID-19 Vaccine (3 - Booster for Pfizer series) [facility] Start: 04-14-2021 Influenza vaccination Flu vaccine (#1) [facility] Start: 2020 Screening for malignant neoplasm of cervix Pap smear [facility] Start: 2017 Hepatitis C screening Hepatitis C screen [facility] Start: 2015 Screening for Chlamydia trachomatis Chlamydia screen [facility] Start: 2014 HIV screening HIV screen [facility] Start: 2011 Depression Screen Depression Screen [facility] Start: 2010 HPV vaccine (1 - 2-dose series) HPV vaccine (1 - 2-dose series) [facility] Start: 1999 Hepatitis C screening Hepatitis C screen [facility] CT HEAD WO CONTRAST CT HEAD WO C ONTRAST Imaging STAT 11/04/2021 11:53 AM EDT [facility] Immunizations Immunization Date Immunization Notes Care Provider Fa librado 04-28-2021 Pfizer Purple Cap SARS-CoV-2 Vaccination Sharee VELIZ Work Phone: [facility] 04-07-2021 Pfizer Purple Cap SARS-CoV-2 Vaccination Sharee VELIZ Work Phone: [facility] 08-17-2012 influenza virus vacc ine, unspecified formulation Sharee VELIZ Work Phone: [facility] Payers Date Payer Category Payer Medicaid [employer] [place] [employer] [id number] 2020-Present [address] [place] [address] [id number] 1999 Unknown [id number] 1999 Unknown [id number] 1999 Unknown [id number] 1999 Unknown [id number] 1999 Unknown [id number] 1999 Unknown [id number] 1999 Unknown [id number] 1999 Unknown [id number] 1999 Unknown [id number] 1999 Unknown [id number] 1959 Self-pay [id number] 1959 Unknown [id number] Social History Date Type Detail Facility Start: 10-11-2021 End: 03-24-2022 Tobacco smoking status DCIS Never smoked tobacco [facility] Phone: Start: 10-11-2021 End: 03-24-2022 Tobacco use and exposure Smokeless tobacco non-user [facility] Phone: Start: 11-04-2021 End: 04-23-2022 Alcohol intake Lifetime non-drinker (finding) [facility] Phone: Start: 10-11-2021 History SDOH Alcohol Frequency 1 [facility] Phone: Start: 2000 Sex Assigned At Not on file [facility] [employer] Phone: Start: 10-25-2021 End: 04-23-2022 Exposure to SARS-CoV-2 (event) Not sure [facility] Phone: Tobacco smoking stat [facility] Tobacco smoking consumption unknown [facility] Gender [...] which includes the following prescription(s): aspirin and ynpcjk-kyzbfmseh-wnsf-fish oil. Medical History: Active Ambulatory Problems Diagnosis [...] of: KEREN Mccloud documented in this encounter [facility] Discharge instructions 04-23-2022 Discharge InstructionsAttachments Note [...] a follow up appointment THANK YOU!!! From [facility] and [facility] On behalf of the Emergency Department staff at [facility], I would like to thank you for giving us the opportunity to address your health care needs and concerns. We hope that during your visit, our service was delivered in a professional and caring manner. Please keep [facility] in mind as we walk with [...] how we did during your visit at [email or web address] and let us know about your experience The following attachments cannot be sent through Care Everywhere.Dehydration ([place])documented in this encounter [facility] Phone: Hospital Discharge instructions 11-01-2021 InstructionsAttachments Note Date & Type Note Facility 11-01-2021 Hospital Discharg e instructions Iain Shah DO - 11/04/2021 Follow-up with ENT Follow-up on Monday for your CAT scan Motrin or Tylenol for pain Return immediately if any worsening symptoms or any other concerns Tell us how we did visit: [email or web address] and let us know about your experience The following attachments cannot be sent through Care Everywhere.Earache: Adult ([place])Headache ([place])documented in this encounter [facility] Phone: Evaluation note Note Date & Type Note Facility Evaluation note Diagnosis Chronic nonintractable headache, unspecified headache type- Primary Earache on right Otalgia, unspecified documented in this encounter [facility] Phone: Evaluation note Note Date & Type Note Facility Evaluation note Diagnosis Pulsatile tinnitus, right ear documented in this encounter [facility] Phone: Evaluation note Note Date & Type Note Facility Evaluation note Diagnosis Painful urination Dysuria documented in this encounter [employer] Phone: Evaluation note Note Date & Type Note Facility Evaluation note Diagnosis Dehydration- Primary documented in this encounter [employer] Phone: Evaluation note Note Date & Type [...] W CONTRAST Zarina Maya MD [address] [place] [address] Referral ID Status Reason Start Date Expiration Date Visits Re quested Visits Authorized [id number] Closed 11/05/2021 12/05/2021 1 1 Additional Source Comments INFORMATION SOURCE (unrecogn ized section and content) DATE CREATED AUTHOR 02/02/2018 [facility] DATE CREATED AUTHOR AUTHOR'S ORGANIZ ATION 04/23/2022 [facility] DATE CREATED AUTHOR AUTHOR'S ORGANIZ ATION 09/21/2023 [facility] EPIC DATE CREATED AUTHOR AUTHOR'S ORGANIZ ATION 11/08/2023 [facility] Reason for Visit (unrecogniz ed section and content) Reason Comments Headache Specialty Diagnoses / Procedures Referred By Contac t Referred To Contact Radiology Diagnoses Pulsatile tinnitus, right ear Procedures CT IAC POSTERIOR FOSSA W CONTRAST Zarina Maya MD [address] [place] [address] Referral ID Status Reason Start Date Expiration Date Visits Re quested Visits Authorized [id number] Closed 11/05/2021 12/05/2021 1 1 Reason Comments [...] Care Teams (unrecognized sec tion and content) [employer]er Relationship Specialty Start Date End Date Malou Jacinto MD [address] [place] [id number] PCP - General Family Medicine 10/11/21 [employer]er Relationship Specialty Start Date End Date Malou Jacinto MD [address] [place] [id number] PCP - General Family Medicine 10/11/21 [employer]er Relationship Specialty Start Date End Date Malou Jacinto MD [address] [place] [id number] PCP - General Family Medicine 10/11/21 [employer] 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 [facility]. provides no warranty or guarantee of the accuracy or completeness of information in this document.
[2024-05-31 17:11] LABS: Age Gdln ACOG Testing Note (.); IGP, rfx Aptima HPV ASCU Note (.)
== END 2024-05-28 19:11 | disposition home or self-care (01) ==
LOC: LAB 19:10
PROVIDERS: Visit Provider Physician Assistant
DX: Z01.419 Encounter for gynecological examination (general) (routine) without abnormal findings (principal)
CPT/HCPCS: 88175